=== PATIENT | female | born 1960 | race Caucasian/White ===

== ENCOUNTER → 2016-05-25 | Outpatient (CLI) | payer MEDICARE ==
[~2016-05-25] MED LIST: ACET500C4 PO; ALBU2.5V4 IH; ALBU8.5H2 IH; ALEN70TA47 PO; ALPR0.5T7 PO; ALPR0.5T72 PO; AML5T PO; AMLO5TAB2 PO; ARFO15VI3 NEB; ASP81TEC PO; BUDE10.2 IH; BUDE6HFA IH; CHOL100061 PO; CYCL10TA9 PO; ENOX40DI8 SC; FLUO20CA25 PO; FLUO40CA PO; FLUT1DIS26 IH; FLUT1DIS27 IH; FOLI0.4T2 PO; FOLI0.8T PO; GABA-486 PO; HCTZ PO; HYDR-3714 PO; HYDR-3816 PO; HYDR1TAB66 PO; HYDR25TA4 PO; IBUP-30 PO; INSU100V3 SC; IPRA3AMP INH; L.AC1CAP6 PO; LACT1TAB12 PO; LEVO100T7 PO; LEVO112T55 PO; LEVO750T39 PO; LEVO750T9 IV; LVT.1T PO; MAGN250T7 PO; MAGN400T6 PO; METH125V2 IV; METH125V2 IVP; MNTL10T PO; MONT10TA24 PO; MORP4CAR IVP; NEBU1KIT3 MC; OMEG-12 PO; OMEP20CA6 PO; PANT40TA3 PO; PNT40TEC PO; POTA10TA10 PO; PRD10T PO; PRD20T PO; PRED10TA PO; RT-ALBUINH INH; RT-ALBUTEROL SULF 2.5 MG/3 ML PRE-MIX VIAL ONE; TIMOLOL PO; TIOT18CA IH; TIOT18CA2 INH; TRAZ100T92 PO; VITAMIN B12; VITAMIN D3; ZLP10T PO
== END ==
LOC: RT 13:39
PROVIDERS: ATTEND Internal Medicine Critical Care Medicine
DX: J44.1 Chronic obstructive pulmonary disease with (acute) exacerbation (principal); J96.20 Acute and chronic respiratory failure, unspecified whether with hypoxia or hypercapnia
CPT/HCPCS: 94060; 94640; 94726; 94729

== ENCOUNTER → 2016-05-28 | Outpatient (CLI) | payer MEDICARE ==
[~2016-05-28] MED LIST changes: +RT-ALBUTEROL SULF 2.5 MG/3 ML PRE-MIX VIAL INH ONE; -RT-ALBUTEROL SULF 2.5 MG/3 ML PRE-MIX VIAL ONE
--- OUTSIDE RECORDS SUMMARY | 2016-05-28 12:46 | XMS REPORT | Continuity of Care Document ---
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 04/27/2014 RAYMUNDO CRAMER MD Ot 276.8 04/27/2014 RAYMUNDO CRAMER MD Ot 300.00 04/27/2014 RAYMUNDO CRAMER MD Ot 305.1 04/27/2014 RAYMUNDO CRAMER MD Ot 311 04/27/2014 RAYMUNDO CRAMER MD Ot 401.9 04/27/2014 RAYMUNDO CRAMER MD Ot 486 04/27/2014 RAYMUNDO CRAMER MD Ot 491.0 04/27/2014 RAYMUNDO CRAMER MD Ot 493.91 04/27/2014 RAYMUNDO CRAMER MD Ot 496 04/27/2014 RAYMUNDO CRAMER MD Ot 518.0 04/27/2014 RAYMUNDO CRAMER MD Ot 518.84 04/27/2014 RAYMUNDO CRAMER MD Ot 530.81 04/27/2014 RAYMUNDO CRAMER MD Ot 716.90 04/27/2014 RAYMUNDO CRAMER MD Ot V45.4 04/27/2014 RAYMUNDO CRAMER MD Ot 276.8 04/27/2014 RAYMUNDO CRAMER MD Ot 300.00 04/27/2014 RAYMUNDO CRAMER MD Ot 305.1 04/27/2014 BELA ANDERSON, RAYMUNDO Lopez Ot 311 04/27/2014 BELA ANDERSON, RAYMUNDO Lopez Ot 401.9 04/27/2014 BELA ANDERSON, RAYMUNDO Lopez Ot 486 04/27/2014 BELA ANDERSON, RAYMUNDO Lopez Ot 491.0 04/27/2014 BELA ANDERSON, RAYMUNDO Lopez Ot 493.91 04/27/2014 BELA ANDERSON, RAYMUNDO Lopez Ot 496 04/27/2014 BELA ANDERSON, RAYMUNDO Lopez Ot 518.0 04/27/2014 BELA ANDERSON, RAYMUNDO Lopez Ot 518.84 04/27/2014 BELA ANDERSON, RAYMUNDO Lopez Ot 530.81 04/27/2014 BEAL ANDERSON, RAYMUNDO Lopez Ot 716.90 04/27/2014 RAYMUNDO CRAMER MD Ot V45.4 04/28/2014 RAYMUNDO CRAMER MD Ot 276.8 04/28/2014 RAYMUNDO CRAMER MD Ot 300.00 04/28/2014 BELA ANDERSON, RAYMUNDO Lopez Ot 305.1 04/28/2014 BELA ANDERSON, RAYMUNDO Lopez Ot 311 04/28/2014 BELA ANDERSON, RAYMUNDO Lopez Ot 401.9 04/28/2014 BELA ANDERSON, RAYMUNDO Lopez Ot 486 04/28/2014 BELA ANDERSON, RAYMUNDO Lopez Ot 491.0 04/28/2014 BELA ANDERSON, RAYMUNDO Lopez Ot 493.91 04/28/2014 BELA ANDERSON, RAYMUNDO Lopez Ot 496 04/28/2014 BELA ANDERSON, RAYMUNDO Lopez Ot 518.0 04/28/2014 BELA ANDERSON, RAYMUNDO Lopez Ot 518.84 04/28/2014 BELA ANDERSON, RAYMUNDO Lopez Ot 530.81 04/28/2014 BELA ANDERSON, RAYMUNDO Lopez Ot 716.90 04/28/2014 RAYMUNDO CRAMER MD Ot V45.4 04/28/2014 RAYMUNDO CRAMER MD Ot 276.8 04/28/2014 RAYMUNDO CRAMER MD Ot 300.00 04/28/2014 BELA ANDERSON, RAYMUNDO Lopez Ot 305.1 04/28/2014 RAYMUNDO CRAMER MD Ot 311 04/28/2014 BELA ANDERSON, RAYMUNDO Lopez Ot 401.9 04/28/2014 RAYMUNDO CRAMER MD Ot 486 04/28/2014 BELA ANDERSON, RAYMUNDO Lopez Ot 491.0 04/28/2014 RAYMUNDO CRAMER MD Ot 493.91 04/28/2014 RAYMUNDO CRAMER MD Ot 496 04/28/2014 RAYMUNDO CRAMER MD Ot 518.0 04/28/2014 RAYMUNDO CRAMER MD Ot 518.84 04/28/2014 RAYMUNDO CRAMER MD Ot 530.81 04/28/2014 RAYMUNDO CRAMER MD Ot 716.90 04/28/2014 RAYMUNDO CRAMER MD Ot V45.4 04/28/2014 RAYMUNDO CRAMER MD Ot 276.8 04/28/2014 RAYMUNDO CRAMER MD Ot 300.00 04/28/2014 RAYMUNDO CRAMER MD Ot 305.1 04/28/2014 RAYMUNDO CRAMER MD Ot 311 04/28/2014 RAYMUNDO CRAMER MD Ot 401.9 04/28/2014 RAYMUNDO CRAMER MD Ot 486 04/28/2014 RAYMUNDO CRAMER MD Ot 491.0 04/28/2014 RAYMUNDO CRAMER MD Ot 493.91 04/28/2014 RAYMUNDO CRAMER MD Ot 496 04/28/2014 RAYMUNDO CRAMER MD Ot 518.0 04/28/2014 RAYMUNDO CRAMER MD Ot 518.84 04/28/2014 RAYMUNDO CRAMER MD Ot 530.81 04/28/2014 RAYMUNDO CRAMER MD Ot 716.90 04/28/2014 RAYMUNDO CRAMER MD Ot V45.4 04/28/2014 RAYMUNDO CRAMER MD Ot 276.8 HYPOPOTASSEMIA 04/28/2014 RAYMUNDO CRAMER MD Ot 300.00 ANXIETY STATE NOS 04/28/2014 RAYMUNDO CRAMER MD Ot 305.1 TOBACCO USE DISORDER 04/28/2014 RAYMUNDO CRAMER MD Ot 311 DEPRESSIVE DISORDER NEC 04/28/2014 ARYMUNDO CRAMER MD Ot 401.9 HYPERTENSION NOS 04/28/2014 BELA ANDERSON, RAYMUNDO Lopez Ot 486 PNEUMONIA, ORGANISM NOS 04/28/2014 RAYMUNDO CRAMER MD Ot 491.0 04/28/2014 RAYMUNDO CRAMER MD Ot 491.21 OBSTR CHRONIC BRONCHITIS, W (ACUTE) EXAC 04/28/2014 RAYMUNDO CRAMER MD Ot 493.91 ASTHMA W STATUS ASTHMAT 04/28/2014 RAYMUNDO CRAMER MD Ot 496 04/28/2014 RAYMUNDO CRAMER MD Ot 518.0 PULMONARY COLLAPSE 04/28/2014 RAYMUNDO CRAMER MD Ot 518.84 ACUTE AND CHRONIC RESPIRATORY FAILURE 04/28/2014 RAYMUNDO CRAMER MD Ot 530.81 ESOPHAGEAL REFLUX 04/28/2014 RAYMUNDO CRAMER MD Ot 716.90 ARTHROPATHY NOS-UNSPEC 04/28/2014 RAYMUNDO CRAMER MD Ot V45.4 ARTHRODESIS STATUS 05/27/2014 Ot V72.84 05/28/2014 Ot V72.84 05/31/2014 KELY HARRIS DO Ot 305.1 05/31/2014 KELY HARRIS DO Ot 492.8 07/27/2014 Ot V72.84 07/27/2014 KELY HARRIS DO Ot 305.1 07/27/2014 KELY HARRIS DO Ot 492.8 07/27/2014 KELY HARRIS DO Ot 305.1 07/27/2014 KELY HARRIS DO Ot 492.8 08/02/2014 Ot V72.84 08/02/2014 KELY HARRIS DO Ot 305.1 08/02/2014 KELY HARRIS DO Ot 492.8 09/19/2014 ANURADHA PARRA MD Ot 592.9 10/01/2014 KELY HARRIS DO Ot 305.1 10/01/2014 KELY HARRIS DO Ot 496 10/01/2014 KELY HARRIS DO Ot 786.09 10/04/2014 KELY HARRIS DO Ot 305.1 10/04/2014 KELY HARRIS DO Ot 496 10/04/2014 KELY HARRIS DO Ot 786.09 10/06/2014 Ot V72.84 10/06/2014 KELY HARRIS DO Ot 305.1 10/06/2014 KELY HARRIS DO Ot 492.8 10/06/2014 KELY HARRIS DO Ot 305.1 10/06/2014 KELY HARRIS DO Ot 496 10/06/2014 KELY HARRIS DO Ot 786.09 10/06/2014 AIDA ANDERSON, ANURADHA Mccloud Ot 592.9 10/06/2014 KELY HARRIS DO Ot 305.1 10/06/2014 KELY HARRIS DO Ot 496 10/06/2014 KELY HARRIS DO Ot 786.09 10/06/2014 AIDA ANDERSON, ANURADHA Mccloud Ot 592.9 10/06/2014 KELY HARRIS DO Ot 305.1 10/06/2014 KELY HARRIS DO Ot 492.8 10/14/2014 KELY HARRIS DO Ot 305.1 10/14/2014 KELY HARRIS DO Ot 492.8 10/14/2014 AIDA ANDERSON, ANURADHA Mccloud Ot 592.9 10/14/2014 KELY HARRIS DO Ot 305.1 10/14/2014 KELY HARRIS DO Ot 496 10/14/2014 KELY HARRIS DO Ot 786.09 05/20/2015 KELY HARRIS DO Ot F17.210 NICOTINE DEPENDENCE, CIGARETTES, UNCOMPL 05/20/2015 KELY HARRIS DO Ot F32.9 MAJOR DEPRESSIVE DISORDER, SINGLE EPISOD 05/20/2015 KELY HARRIS DO Ot F41.9 ANXIETY DISORDER, UNSPECIFIED 05/20/2015 KELY HARRIS DO Ot G56.82 OTHER SPECIFIED MONONEUROPATHIES OF LEFT 05/20/2015 KELY HARRIS DO Ot I10 ESSENTIAL (PRIMARY) HYPERTENSION 05/20/2015 KELY HARRIS DO Ot J44.1 CHRONIC OBSTRUCTIVE PULMONARY DISEASE W 05/20/2015 KELY HARRIS DO Ot K21.9 GASTRO-ESOPHAGEAL REFLUX DISEASE WITHOUT 05/20/2015 KELY HARRIS DO Ot S44.92XS INJURY OF UNSP NERVE AT SHLDR/UP ARM, LE 05/20/2015 KELY HARRIS DO Ot Z99.81 DEPENDENCE ON SUPPLEMENTAL OXYGEN 07/27/2015 PHILLIPS DO, SHERRY Ot E03.9 HYPOTHYROIDISM, UNSPECIFIED 07/27/2015 PHILLIPS DO, SHERRY Ot E78.5 HYPERLIPIDEMIA, UNSPECIFIED 07/27/2015 PHILLIPS DO, SHERRY Ot F17.200 NICOTINE DEPENDENCE, UNSPECIFIED, UNCOMP 07/27/2015 PHILLIPS DO, SHERRY Ot F32.9 MAJOR DEPRESSIVE DISORDER, SINGLE EPISOD 07/27/2015 PHILLIPS DO, SHERRY Ot F41.9 ANXIETY DISORDER, UNSPECIFIED 07/27/2015 PHILLIPS DO, SHERRY Ot G62.9 POLYNEUROPATHY, UNSPECIFIED 07/27/2015 PHILLIPS DO, SHERRY Ot I10 ESSENTIAL (PRIMARY) HYPERTENSION 07/27/2015 PHILLIPS DO, SHERRY Ot J44.1 CHRONIC OBSTRUCTIVE PULMONARY DISEASE W 07/27/2015 PHILLIPS DO SHERRY Ot J96.21 ACUTE AND CHRONIC RESPIRATORY FAILURE WI 07/27/2015 JACQUELINE TRINIDAD SHERRY Ot K21.9 GASTRO-ESOPHAGEAL REFLUX DISEASE WITHOUT 07/27/2015 PHILLIPS DO, SHERRY Ot M81.0 AGE-RELATED OSTEOPOROSIS W/O CURRENT PAT 07/27/2015 PHILLIPS DO, SHERRY Ot Z99.81 DEPENDENCE ON SUPPLEMENTAL OXYGEN 04/02/2016 Ot V72.84 EXAM PRE-OPERATIVE NOS 04/02/2016 KELY HARRIS DO Ot 305.1 TOBACCO USE DISORDER 04/02/2016 KELY HARRIS DO Ot 492.8 EMPHYSEMA NEC 04/02/2016 KELY HARRIS DO Ot 305.1 TOBACCO USE DISORDER 04/02/2016 KELY HARRIS DO Ot 496 CHR AIRWAY OBSTRUCT NEC 04/02/2016 KELY HARRIS DO Ot 786.09 RESPIRATORY ABNORM NEC 04/02/2016 AIDA ANDERSON, ANURADHA Mccloud Ot 592.9 URINARY CALCULUS NOS 04/02/2016 KELY HARRIS DO Ot 305.1 TOBACCO USE DISORDER 04/02/2016 KELY HARRIS DO Ot 496 CHR AIRWAY OBSTRUCT NEC 04/02/2016 KELY HARRIS DO Ot 786.09 RESPIRATORY ABNORM NEC 04/04/2016 Ot V72.84 EXAM PRE-OPERATIVE NOS 04/04/2016 KELY HARRIS DO Ot 305.1 TOBACCO USE DISORDER 04/04/2016 KELY HARRIS DO Ot 492.8 EMPHYSEMA NEC 04/04/2016 KELY HARRIS DO Ot 305.1 TOBACCO USE DISORDER 04/04/2016 KELY HARRIS DO Ot 496 CHR AIRWAY OBSTRUCT NEC 04/04/2016 KELY HARRIS DO Ot 786.09 RESPIRATORY ABNORM NEC 04/04/2016 AIDA ANDERSON, ANURADHA Mccloud Ot 592.9 URINARY CALCULUS NOS 04/04/2016 KELY HARRIS DO Ot 305.1 TOBACCO USE DISORDER 04/04/2016 KELY HARRIS DO Ot 496 CHR AIRWAY OBSTRUCT NEC 04/04/2016 KELY HARRIS DO Ot 786.09 RESPIRATORY ABNORM NEC 04/05/2016 CECY CHANG MD Ot E03.9 HYPOTHYROIDISM, UNSPECIFIED 04/05/2016 CECY CHANG MD Ot E78.5 HYPERLIPIDEMIA, UNSPECIFIED 04/05/2016 CECY CHANG MD Ot E87.6 HYPOKALEMIA 04/05/2016 CECY CHANG MD Ot F17.210 NICOTINE DEPENDENCE, CIGARETTES, UNCOMPL 04/05/2016 CECY CHANG MD Ot F32.9 MAJOR DEPRESSIVE DISORDER, SINGLE EPISOD 04/05/2016 CECY CHANG MD Ot F41.9 ANXIETY DISORDER, UNSPECIFIED 04/05/2016 CECY CHANG MD Ot G62.9 POLYNEUROPATHY, UNSPECIFIED 04/05/2016 CECY CHANG MD Ot I10 ESSENTIAL (PRIMARY) HYPERTENSION 04/05/2016 CECY CHANG MD Ot J13 PNEUMONIA DUE TO STREPTOCOCCUS PNEUMONIA 04/05/2016 CECY CHANG MD Ot J44.1 CHRONIC OBSTRUCTIVE PULMONARY DISEASE W 04/05/2016 CECY CHANG MD Ot J96.20 ACUTE AND CHR RESP FAILURE, UNSP W HYPOX 04/05/2016 CECY CHANG MD Ot K21.9 GASTRO-ESOPHAGEAL REFLUX DISEASE WITHOUT 04/05/2016 CECY CHANG MD Ot M19.90 UNSPECIFIED OSTEOARTHRITIS, UNSPECIFIED 04/05/2016 CECY CHANG MD Ot M54.9 DORSALGIA, UNSPECIFIED 04/05/2016 CECY CHANG MD Ot M81.0 AGE-RELATED OSTEOPOROSIS W/O CURRENT PAT 04/05/2016 CECY CHANG MD Ot Z99.81 DEPENDENCE ON SUPPLEMENTAL OXYGEN 05/25/2016 Ot V72.84 EXAM PRE-OPERATIVE NOS 05/25/2016 KELY HARRIS DO Ot 305.1 TOBACCO USE DISORDER 05/25/2016 KELY HARRIS DO Ot 492.8 EMPHYSEMA NEC 05/25/2016 KELY HARRIS DO Ot 305.1 TOBACCO USE DISORDER 05/25/2016 KELY HARRIS DO Ot 496 CHR AIRWAY OBSTRUCT NEC 05/25/2016 KELY HARRIS DO Ot 786.09 RESPIRATORY ABNORM NEC 05/25/2016 AIDA ANDERSON, ANURADHA Mccloud Ot 592.9 URINARY CALCULUS NOS 05/25/2016 KELY HARRIS DO Ot 305.1 TOBACCO USE DISORDER 05/25/2016 KELY HARRIS DO Ot 496 CHR AIRWAY OBSTRUCT NEC 05/25/2016 KELY HARRIS DO Ot 786.09 RESPIRATORY ABNORM NEC 05/25/2016 KELY HARRIS DO Ot J44.9 CHRONIC OBSTRUCTIVE PULMONARY DISEASE, U Procedures Code Description Performed By Performed On 96.71 CONTINUOUS INVASIVE MECHANICAL VENTILATI 04/22/2014 33.24 ENDOSCOPIC BRONCHIAL BX 04/28/2014 [id number] RESPIRATORY VENTILATION, 24-96 CONSECUTI 07/22/2015 [id number] RESPIRATORY VENTILATION, LESS THAN 24 CO 04/02/2016 Results Test Result Range Sputum Gram stain - 04/02/16 15:40 GRAM STAIN SPUTUM AND GRAM POSITIVE COCCI NRG Bacterial sputum culture - 04/02/16 15:40 FREE TEXT EXTERNAL SEE COMMENT NRG QUANTITY OF GROWTH Abundant Growth NRG Bacterial sputum culture [id number] NR Complete blood count (CBC) with automated white blood cell (WBC) differential - 04/02/16 16:05 Blood leukocytes automated count (number/volume) 8.4 10*3/ uL 4.3-11.0 Blood erythrocytes automated count (number/volume) 3.66 10*6 /uL 4.35-5.85 Venous blood hemoglobin measurement (mass/volume) 11.9 g/dL 11.5-16.0 Blood hematocrit (volume fraction) 36 % 35-52 Automated erythrocyte mean corpuscular volume 98 [foz_us] 80-99 Automated erythrocyte mean corpuscular hemoglobin (mass per erythrocyte) 33 pg 25-34 Automated erythrocyte mean corpuscular hemoglobin concentration measurement ( mass/volume) 33 g/dL 32-36 Automated erythrocyte distribution width ratio 13.8 % 10.0-14.5 Automated blood platelet count (count/volume) 203 10*3/uL 130-400 Automated blood platelet mean volume measurement 8.7 [foz_us ] 7.4-10.4 Automated blood neutrophils/100 leukocytes 97 % 42-75 Automated blood lymphocytes/100 leukocytes 2 % 12-44 Blood monocytes/100 leukocytes 1 % 0-12 Automated blood eosinophils/100 leukocytes 0 % 0-10 Automated blood basophils/100 leukocytes 0 % 0-10 Blood neutrophils automated count (number/volume) 8.1 10*3 1.8-7.8 Blood lymphocytes automated count (number/volume) 0.1 10*3 1.0-4.0 Blood monocytes automated count (number/volume) 0.1 10*3 0.0-1.0 Automated eosinophil count 0.0 10*3/uL 0.0-0.3 Automated blood basophil count (count/volume) 0.0 10*3/uL 0.0-0.1 Comprehensive metabolic panel - 04/02/16 16:05 Serum or plasma sodium measurement (moles/volume) 131 mmol/ L 135-145 Serum or plasma potassium measurement (moles/volume) 3.2 mmol/L 3.6-5.0 Serum or plasma chloride measurement (moles/volume) 98 mmol/ L 98-107 Carbon dioxide 23 mmol/L 21-32 Serum or plasma anion gap determination (moles/volume) 10 mmol/L 5-14 Serum or plasma urea nitrogen measurement (mass/volume) 11 mg/dL 7-18 Serum or plasma creatinine measurement (mass/volume) 0.83 mg /dL 0.60-1.30 Serum or plasma urea nitrogen/creatinine mass ratio 13 NRG Serum or plasma creatinine measurement with calculation of estimated glomerular filtration rate > NRG Serum or plasma glucose measurement (mass/volume) 217 mg/dL 70-105 Serum or plasma calcium measurement (mass/volume) 8.1 mg/dL 8.5-10.1 Serum or plasma total bilirubin measurement (mass/volume) 0.7 mg/dL 0.1-1.0 Serum or plasma alkaline phosphatase measurement (enzymatic activity/volume) 39 U/L 40-136 Serum or plasma aspartate aminotransferase measurement (enzymatic activity/ volume) 22 U/L 5-34 Serum or plasma alanine aminotransferase measurement (enzymatic activity/volume ) 16 U/L 0-55 Serum or plasma protein measurement (mass/volume) 5.5 g/dL 6.4-8.2 Serum or plasma albumin measurement (mass/volume) 3.6 g/dL 3.2-4.5 Blood manual differential performed detection - 04/02/16 16:05 Blood monocytes/100 leukocytes 1 % NRG Manual blood segmented neutrophils/100 leukocytes 95 % NRG Blood band neutrophils/100 leukocytes 1 % NRG Manual blood lymphocytes/100 leukocytes 3 % NRG Manual eosinophils/100 leukocytes in nose 0 % NRG Manual blood basophils/100 leukocytes 0 % NRG Blood erythrocyte morphology finding identification NORMAL NRG Serum or plasma glucose measurement (mass/volume) - 04/02/16 16:05 Serum or plasma glucose measurement (mass/volume) 215 mg/dL 70-105 Methicillin resistant Staphylococcus aureus (MRSA) screening culture - 17:00 Methicillin resistant Staphylococcus aureus (MRSA) screening culture NEG NRG Arterial blood gas measurement - 04/02/16 18:23 Blood pCO2 44 mm[Hg] 35-45 Blood pO2 94 mm[Hg] 79-93 Arterial blood bicarbonate measurement (moles/volume) 26 mmol/L 23-27 Arterial blood base excess by calculation 0.3 mmol/L -2.5-2.5 Arterial blood oxygen saturation measurement 97 % 94-100 * Inhaled oxygen flow rate 35 NRG Arterial blood pH measurement with patient temperature correction 7.38 7.37-7.43 Arterial blood carbon dioxide, total measurement (moles/volume) 27.1 mmol/L 21.0-31.0 Body site R RAD NRG Assessment of wrist artery patency prior to arterial puncture YES-POS NRG Setting of ventilation mode YES NRG Measurement of body temperature 98.4 NRG Arterial blood gas measurement - 04/03/16 05:40 Blood pCO2 48 mm[Hg] 35-45 Blood pO2 85 mm[Hg] 79-93 Arterial blood bicarbonate measurement (moles/volume) 26 mmol/L 23-27 Arterial blood base excess by calculation 0.5 mmol/L -2.5-2.5 Arterial blood oxygen saturation measurement 97 % 94-100 * Inhaled oxygen flow rate 35% NRG Arterial blood pH measurement with patient temperature correction 7.36 7.37-7.43 Arterial blood carbon dioxide, total measurement (moles/volume) 27.7 mmol/L 21.0-31.0 Body site ARTLINE NRG Assessment of wrist artery patency prior to arterial puncture ART LINE NRG Setting of ventilation mode YES NRG Measurement of body temperature 98.6 NRG Complete blood count (CBC) with automated white blood cell (WBC) differential - 04/03/16 05:40 Blood leukocytes automated count (number/volume) 10.8 10*3/ uL 4.3-11.0 Blood erythrocytes automated count (number/volume) 3.24 10*6 /uL 4.35-5.85 Venous blood hemoglobin measurement (mass/volume) 10.5 g/dL 11.5-16.0 Blood hematocrit (volume fraction) 32 % 35-52 Automated erythrocyte mean corpuscular volume 98 [foz_us] 80-99 Automated erythrocyte mean corpuscular hemoglobin (mass per erythrocyte) 32 pg 25-34 Automated erythrocyte mean corpuscular hemoglobin concentration measurement ( mass/volume) 33 g/dL 32-36 Automated erythrocyte distribution width ratio 13.7 % 10.0-14.5 Automated blood platelet count (count/volume) 195 10*3/uL 130-400 Automated blood platelet mean volume measurement 8.1 [foz_us ] 7.4-10.4 Automated blood neutrophils/100 leukocytes 94 % 42-75 Automated blood lymphocytes/100 leukocytes 3 % 12-44 Blood monocytes/100 leukocytes 3 % 0-12 Automated blood eosinophils/100 leukocytes 0 % 0-10 Automated blood basophils/100 leukocytes 0 % 0-10 Blood neutrophils automated count (number/volume) 10.2 10*3 1.8-7.8 Blood lymphocytes automated count (number/volume) 0.3 10*3 1.0-4.0 Blood monocytes automated count (number/volume) 0.3 10*3 0.0-1.0 Automated eosinophil count 0.0 10*3/uL 0.0-0.3 Automated blood basophil count (count/volume) 0.0 10*3/uL 0.0-0.1 Whole blood basic metabolic panel - 04/03/16 05:40 Serum or plasma sodium measurement (moles/volume) 134 mmol/ L 135-145 Serum or plasma potassium measurement (moles/volume) 3.9 mmol/L 3.6-5.0 Serum or plasma chloride measurement (moles/volume) 103 mmol /L 98-107 Carbon dioxide 23 mmol/L 21-32 Serum or plasma anion gap determination (moles/volume) 8 mmol/L 5-14 Serum or plasma urea nitrogen measurement (mass/volume) 12 mg/dL 7-18 Serum or plasma creatinine measurement (mass/volume) 0.72 mg /dL 0.60-1.30 Serum or plasma urea nitrogen/creatinine mass ratio 17 NRG Serum or plasma creatinine measurement with calculation of estimated glomerular filtration rate > NRG Serum or plasma glucose measurement (mass/volume) 127 mg/dL 70-105 Serum or plasma calcium measurement (mass/volume) 7.9 mg/dL 8.5-10.1 Serum or plasma phosphate measurement (mass/volume) - 04/03/16 05:40 Serum or plasma phosphate measurement (mass/volume) 3.2 mg/ dL 2.3-4.7 Magnesium - 04/03/16 05:40 Magnesium 2.0 mg/dL 1.8-2.4 Arterial blood gas measurement - 04/03/16 07:30 Blood pCO2 49 mm[Hg] 35-45 Blood pO2 72 mm[Hg] 79-93 Arterial blood bicarbonate measurement (moles/volume) 27 mmol/L 23-27 Arterial blood base excess by calculation 0.5 mmol/L -2.5-2.5 Arterial blood oxygen saturation measurement 95 % 94-100 * Inhaled oxygen flow rate 35% NRG Arterial blood pH measurement with patient temperature correction 7.35 7.37-7.43 Arterial blood carbon dioxide, total measurement (moles/volume) 28.4 mmol/L 21.0-31.0 Body site RR ART NRG Assessment of wrist artery patency prior to arterial puncture ART LINE NRG Setting of ventilation mode YES NRG Measurement of body temperature 97.3 NRG Arterial blood gas measurement - 04/03/16 10:54 Blood pCO2 57 mm[Hg] 35-45 Blood pO2 96 mm[Hg] 79-93 Arterial blood bicarbonate measurement (moles/volume) 27 mmol/L 23-27 Arterial blood base excess by calculation 0.2 mmol/L -2.5-2.5 Arterial blood oxygen saturation measurement 97 % 94-100 * Inhaled oxygen flow rate 6 NRG Arterial blood pH measurement with patient temperature correction 7.30 7.37-7.43 Arterial blood carbon dioxide, total measurement (moles/volume) 29.2 mmol/L 21.0-31.0 Body site ARTLINE NRG Assessment of wrist artery patency prior to arterial puncture ART LINE NRG Setting of ventilation mode NO NRG Measurement of body temperature 98.0 NRG Capillary blood glucose measurement by glucometer (mass/volume) - 04/03/16 12: 14 Capillary blood glucose measurement by glucometer (mass/volume) 142 mg/dL 70-110 Capillary blood glucose measurement by glucometer (mass/volume) - 04/03/16 17: 24 Capillary blood glucose measurement by glucometer (mass/volume) 124 mg/dL 70-110 Complete blood count (CBC) with automated white blood cell (WBC) differential - 04/04/16 04:10 Blood leukocytes automated count (number/volume) 17.7 10*3/ uL 4.3-11.0 Blood erythrocytes automated count (number/volume) 3.49 10*6 /uL 4.35-5.85 Venous blood hemoglobin measurement (mass/volume) 11.3 g/dL 11.5-16.0 Blood hematocrit (volume fraction) 35 % 35-52 Automated erythrocyte mean corpuscular volume 100 [foz_us] 80-99 Automated erythrocyte mean corpuscular hemoglobin (mass per erythrocyte) 32 pg 25-34 Automated erythrocyte mean corpuscular hemoglobin concentration measurement ( mass/volume) 32 g/dL 32-36 Automated erythrocyte distribution width ratio 14.1 % 10.0-14.5 Automated blood platelet count (count/volume) 178 10*3/uL 130-400 Automated blood platelet mean volume measurement 8.5 [foz_us ] 7.4-10.4 Automated blood neutrophils/100 leukocytes 95 % 42-75 Automated blood lymphocytes/100 leukocytes 2 % 12-44 Blood monocytes/100 leukocytes 3 % 0-12 Automated blood eosinophils/100 leukocytes 0 % 0-10 Automated blood basophils/100 leukocytes 0 % 0-10 Blood neutrophils automated count (number/volume) 16.9 10*3 1.8-7.8 Blood lymphocytes automated count (number/volume) 0.3 10*3 1.0-4.0 Blood monocytes automated count (number/volume) 0.6 10*3 0.0-1.0 Automated eosinophil count 0.0 10*3/uL 0.0-0.3 Automated blood basophil count (count/volume) 0.0 10*3/uL 0.0-0.1 Whole blood basic metabolic panel - 04/04/16 04:10 Serum or plasma sodium measurement (moles/volume) 137 mmol/ L 135-145 Serum or plasma potassium measurement (moles/volume) 3.7 mmol/L 3.6-5.0 Serum or plasma chloride measurement (moles/volume) 104 mmol /L 98-107 Carbon dioxide 22 mmol/L 21-32 Serum or plasma anion gap determination (moles/volume) 11 mmol/L 5-14 Serum or plasma urea nitrogen measurement (mass/volume) 17 mg/dL 7-18 Serum or plasma creatinine measurement (mass/volume) 0.70 mg /dL 0.60-1.30 Serum or plasma urea nitrogen/creatinine mass ratio 24 NRG Serum or plasma creatinine measurement with calculation of estimated glomerular filtration rate > NRG Serum or plasma glucose measurement (mass/volume) 126 mg/dL 70-105 Serum or plasma calcium measurement (mass/volume) 8.2 mg/dL 8.5-10.1 Serum or plasma phosphate measurement (mass/volume) - 04/04/16 04:10 Serum or plasma phosphate measurement (mass/volume) 2.3 mg/ dL 2.3-4.7 Magnesium - 04/04/16 04:10 Magnesium 2.2 mg/dL 1.8-2.4 Blood manual differential performed detection - 04/04/16 04:10 Blood monocytes/100 leukocytes 3 % NRG Manual blood segmented neutrophils/100 leukocytes 92 % NRG Blood band neutrophils/100 leukocytes 2 % NRG Manual blood lymphocytes/100 leukocytes 1 % NRG Manual eosinophils/100 leukocytes in nose 0 % NRG Manual blood basophils/100 leukocytes 0 % NRG Blood lymphocytes variant/100 leukocytes 1 % NRG Blood anisocytosis detection by light microscopy SLIGHT NRG Blood toxic granules detection by light microscopy 1+ NRG Manual blood metamyelocytes/100 leukocytes 1 % NRG Serum or plasma lithium measurement (moles/volume) - 04/04/16 04:10 BNP level 119.9 pg/mL <100.0 Arterial blood gas measurement - 04/04/16 04:15 Blood pCO2 50 mm[Hg] 35-45 Blood pO2 81 mm[Hg] 79-93 Arterial blood bicarbonate measurement (moles/volume) 27 mmol/L 23-27 Arterial blood base excess by calculation 1.2 mmol/L -2.5-2.5 Arterial blood oxygen saturation measurement 96 % 94-100 * Inhaled oxygen flow rate 30% BIPAP NRG Arterial blood pH measurement with patient temperature correction 7.35 7.37-7.43 Arterial blood carbon dioxide, total measurement (moles/volume) 28.8 mmol/L 21.0-31.0 Body site L RAD NRG Assessment of wrist artery patency prior to arterial puncture YES-POS NRG Setting of ventilation mode NO NRG Measurement of body temperature 98.9 NRG Capillary blood glucose measurement by glucometer (mass/volume) - 04/04/16 18: 45 Capillary blood glucose measurement by glucometer (mass/volume) 140 mg/dL 70-110 Capillary blood glucose measurement by glucometer (mass/volume) - 04/05/16 00: 15 Capillary blood glucose measurement by glucometer (mass/volume) 178 mg/dL 70-110 Complete blood count (CBC) with automated white blood cell (WBC) differential - 04/05/16 04:08 Blood leukocytes automated count (number/volume) 13.6 10*3/ uL 4.3-11.0 Blood erythrocytes automated count (number/volume) 4.01 10*6 /uL 4.35-5.85 Venous blood hemoglobin measurement (mass/volume) 12.7 g/dL 11.5-16.0 Blood hematocrit (volume fraction) 39 % 35-52 Automated erythrocyte mean corpuscular volume 98 [foz_us] 80-99 Automated erythrocyte mean corpuscular hemoglobin (mass per erythrocyte) 32 pg 25-34 Automated erythrocyte mean corpuscular hemoglobin concentration measurement ( mass/volume) 32 g/dL 32-36 Automated erythrocyte distribution width ratio 13.6 % 10.0-14.5 Automated blood platelet count (count/volume) 208 10*3/uL 130-400 Automated blood platelet mean volume measurement 8.3 [foz_us ] 7.4-10.4 Automated blood neutrophils/100 leukocytes 93 % 42-75 Automated blood lymphocytes/100 leukocytes 2 % 12-44 Blood monocytes/100 leukocytes 4 % 0-12 Automated blood eosinophils/100 leukocytes 0 % 0-10 Automated blood basophils/100 leukocytes 0 % 0-10 Blood neutrophils automated count (number/volume) 12.7 10*3 1.8-7.8 Blood lymphocytes automated count (number/volume) 0.3 10*3 1.0-4.0 Blood monocytes automated count (number/volume) 0.6 10*3 0.0-1.0 Automated eosinophil count 0.0 10*3/uL 0.0-0.3 Automated blood basophil count (count/volume) 0.0 10*3/uL 0.0-0.1 Whole blood basic metabolic panel - 04/05/16 04:08 Serum or plasma sodium measurement (moles/volume) 137 mmol/ L 135-145 Serum or plasma potassium measurement (moles/volume) 3.4 mmol/L 3.6-5.0 Serum or plasma chloride measurement (moles/volume) 94 mmol/ L 98-107 Carbon dioxide 33 mmol/L 21-32 Serum or plasma anion gap determination (moles/volume) 10 mmol/L 5-14 Serum or plasma urea nitrogen measurement (mass/volume) 22 mg/dL 7-18 Serum or plasma creatinine measurement (mass/volume) 0.80 mg /dL 0.60-1.30 Serum or plasma urea nitrogen/creatinine mass ratio 28 NRG Serum or plasma creatinine measurement with calculation of estimated glomerular filtration rate > NRG Serum or plasma glucose measurement (mass/volume) 126 mg/dL 70-105 Serum or plasma calcium measurement (mass/volume) 8.9 mg/dL 8.5-10.1 Serum or plasma phosphate measurement (mass/volume) - 04/05/16 04:08 Serum or plasma phosphate measurement (mass/volume) 2.2 mg/ dL 2.3-4.7 Magnesium - 04/05/16 04:08 Magnesium 2.2 mg/dL 1.8-2.4 Encounters ACCT No. Visit Date/Time Discharge Status Pt. Type Provider Facility Loc./Unit Complaint [id number] 04/02/2016 15:29:00 2015 11:28:00 DIS Inpatient BERNARDO ANDERSON, CECY Manzano [facility] ICU RESP FAILURE [id number] 07/22/2015 19:56:00 2015 15:35:00 DIS Inpatient SHERRY PHILLIPS DO [facility] ICU COPD, VENT, HIGHER LEVEL OF CARE [id number] 08/27/2014 08:16:00 2014 23:59:59 CLS Outpatient KELY HARRIS DO [facility] RAD COPD DYSPNEA [id number] 08/04/2014 13:46:00 2014 23:59:59 CLS Outpatient KELY HARRIS DO [facility] RT COPD,DYSPNEA,TOBACCO USER [id number] 08/02/2014 11:46:00 2014 23:59:59 CLS Outpatient ANURADHA PARRA MD [facility] RAD STONE [id number] 05/28/2014 09:59:00 2014 23:59:59 CLS Outpatient KELY HARRIS DO [facility] RAD COPD [id number] 05/28/2016 13:45:00 PEN Preadmit KELY HARRIS DO [facility] RAD COPD,DYSPNEA [id number] 05/25/2016 13:39:00 ACT Outpatient KELY HARRIS DO [facility] RT COPD,DYSPNEA [id number] 05/18/2015 13:11:00 ACT Inpatient KELY HARRIS DO [facility] 4TH COPD EXACERBATION [id number] 05/27/2014 10:18:00 Document Registration [id number] 04/22/2014 18:09:00 ACT Inpatient BELA ANDERSON, RAYMUNDO Lopez [facility] 4TH RESP DISTRESS; HEMOPTISIS [id number] 07/24/2012 07:22:00 Document Registration [id number] 07/23/2012 17:21:00 Document Registration [id number] 07/07/2010 07:06:00 Document Registration
--- NOTE | 2016-05-28 15:14 | Diagnostic Imaging Report ---
PROCEDURE: Lung cancer screening CT chest without contrast. TECHNIQUE: Multiple contiguous axial images were obtained through the chest without the use of intravenous contrast. This is performed with a low-dose protocol. INDICATION: Currently asymptomatic patient with 40 year history of two packs per day for a total of 80 pack years history of smoking Comparison: 05/19/2015. Findings: Upper lobe predominant emphysema changes are seen. There is groundglass low density nodule seen in the right minor fissure area likely related to scarring and appears to be present on prior exams including 04/26/2014. This measures 6 mm. There is otherwise no significant nodule, consolidation or mass. The heart size is normal. The thoracic aorta is normal in caliber. No mediastinal mass or significantly enlarged lymph nodes are noted. There are calcified lymph nodes seen in the right hilum and right paratracheal station. There are no enlarged noncalcified lymph nodes seen. No pleural or pericardial effusion. The osseous structures demonstrate mild degenerative changes. IMPRESSION: Upper lobe predominant emphysema. 6 mm nodular density along the minor fissure is most likely a scar and is stable from April 2014 exam. No suspicious nodule. Lung Rads Category 2. Benign findings. Recommendations: Annual screening low-dose CT scan. Dictated by: Dictated on workstation # [id number]
== END ==
LOC: RAD 12:41
PROVIDERS: ATTEND Internal Medicine Critical Care Medicine
DX: J96.20 Acute and chronic respiratory failure, unspecified whether with hypoxia or hypercapnia (principal); J44.1 Chronic obstructive pulmonary disease with (acute) exacerbation; F17.210 Nicotine dependence, cigarettes, uncomplicated

== ENCOUNTER 2016-07-23 19:21 | Emergency (ER) | payer MEDICARE ==
[~2016-07-23] VITALS: Ht 162.6 cm; Wt 63.0 kg
[~2016-07-23 19:21] MED LIST changes: -ALBU2.5V4 IH; -ALEN70TA47 PO; -BUDE10.2 IH; -NEBU1KIT3 MC; -PRD20T PO; -RT-ALBUTEROL SULF 2.5 MG/3 ML PRE-MIX VIAL INH ONE; -VITAMIN B12; -VITAMIN D3
[2016-07-23] MEDS ORDERED: methylPREDNISolone 125 MG (Solu-MEDROL) VIAL IV STA (19:32)
[2016-07-23] MEDS ORDERED: RT-ALBUTEROL/IPRATROPIUM 3 ML (DUONEB) VIAL INH ONE ×2 (19:45→20:00)
[2016-07-23 19:51] LABS: BASOPHILS % (AUTO) 0 % (0-10); EOSINOPHILS % (AUTO) 0 % (0-10); LYMPHOCYTES # (AUTO) 1.9 X 10^3 (1.0-4.0); LYMPHOCYTES % (AUTO) 19 % (12-44); MEAN CORPUSCULAR HEMOGLOBIN 32 PG (25-34); MEAN CORPUSCULAR HGB CONC 34 G/DL (32-36); MEAN CORPUSCULAR VOLUME 94 FL (80-99); MEAN PLATELET VOLUME 7.9 FL (7.4-10.4); MONOCYTES # (AUTO) 0.7 X 10^3 (0.0-1.0); MONOCYTES % (AUTO) 7 % (0-12); NEUTROPHILS # (AUTO) 7.5 X 10^3 (1.8-7.8); NEUTROPHILS % (AUTO) 74 % (42-75); PLATELET COUNT 336 10^3/uL (130-400); RED BLOOD COUNT 4.18 10^6/uL (4.35-5.85); RED CELL DISTRIBUTION WIDTH 12.3 % (10.0-14.5); WHITE BLOOD COUNT 10.1 10^3/uL (4.3-11.0)
[2016-07-23] MEDS ORDERED: BUDE10.2 IH (19:59)
[2016-07-23] MEDS ORDERED: PRD20T PO ×2 (19:59→21:26)
[2016-07-23] MEDS ORDERED: VITAMIN B12 (19:59)
[2016-07-23] MEDS ORDERED: ALEN70TA47 PO (19:59)
[2016-07-23] MEDS ORDERED: VITAMIN D3 (19:59)
--- NOTE | 2016-07-23 19:59 | ED Respiratory ---
General Chief Complaint: Respiratory Problems Stated Complaint: SOB Nursing Triage Note: PT C/O COPD EXAC X 4 WEEKS. SHE IS ON HER 3RD ROUND OF PREDNISONE. SHE WAS SEEN AT ER AT [facility] LAST SATURDAY. NO ABX TREATMENT AT THIS TIME. SHE REPORTS SOA MARKEDLY WORSE TODAY. Source: patient, family Exam Limitations: no limitations History of Present Illness Time seen by provider: 19:50 Initial Comments 56-year-old female patient presents to the emergency department complaints of COPD exacerbation for 4 weeks. Patient states she has been on 3 rounds of prednisone. Was seen at [facility] emergency department last Saturday he was instructed to continue current treatment. Patient states when prednisone is decreased to 20 mg she begins having increasing symptoms. Patient does see Dr. Spear and is scheduled to see him this Saturday. Timing/Duration: other (4 wks, worse over the last 5-7 days.) Prior Episodes/Possible Cause: chronic episodes Modifying Factors: Worse With Coughing Allergies and Home Medications Allergies Coded Allergies: metronidazole (Verified Allergy, Unknown, 04/02/16) Home Medications Albuterol Sulfate 2.5 Mg/3 Ml Vial.neb, 2.5 MG IH Q4H PRN for SHORTNESS OF BREATH, #28 Ref 0 Diagnosi: COPD exacerbation J44.1 Prescribed by: KIM GUTIÉRREZ on 07/24/16 1539 Alendronate Sodium 70 Mg Tablet, 1 TAB PO WEEKLY, #4 (Reported) Alprazolam 0.5 Mg Tablet, 0.5 MG PO TID, (Reported) Budesonide/Formoterol Fumarate 10.2 Gm Hfa.aer.ad, 2 PUFF IH BID, (Reported) Cyclobenzaprine HCl 10 Mg Tablet, 10 MG PO HS, (Reported) Hydrochlorothiazide 25 Mg Tablet, 25 MG PO DAILY, (Reported) Hydrocodone/Acetaminophen 1 Each Tablet, 1 TAB PO TID PRN for PAIN, (Reported) Ipratropium/Albuterol Sulfate 3 Ml Ampul.neb, 3 ML INH RTQ4HR for 30 Days Prescribed by: SHERRY PHILLIPS on 04/05/16 1012 L.acidoph & Paracasei,B.lactis 1 Each Capsule, 1 CAP PO DAILY, (Reported) Levothyroxine Sodium 112 Mcg Tablet, 112 MCG PO DAILY, (Reported) Montelukast Sodium 10 Mg Tablet, 10 MG PO HS, (Reported) Pantoprazole Sodium 40 Mg Tablet.dr, 40 MG PO DAILY, (Reported) Prednisone 20 Mg Tab, 20 MG PO DAILY, #11 (Reported) Take 3 tabs(60mg)daily, decrease by 1/2 tab(10mg)daily. Prednisone 20 Mg Tab, 40 MG PO DAILY for 5 Days, #10 Ref 0 Prescribed by: EVERTON LOPEZ on 07/23/162125 Trazodone HCl 100 Mg Tablet, 100 MG PO HS, (Reported) [Vitamin B12] , (Reported) [Vitamin D3] , (Reported) Constitutional: No chills, No fever, No malaise EENTM: no symptoms reported Respiratory: see HPI, cough, dyspnea on exertion ((chronic)), No hemoptysis, No orthopnea, phlegm (clear.), short of breath, No stridor, wheezing Cardiovascular: No chest pain, No edema, No palpitations, No syncope Gastrointestinal: No abdominal pain, No constipation, No diarrhea, No nausea, No vomiting Genitourinary: no symptoms reported Musculoskeletal: no symptoms reported Skin: no symptoms reported Psychiatric/Neurological: No Symptoms Reported All Other Systems Reviewed Negative Unless Noted: Yes (Negative excepted noted.) Past Gqovpwl-Taknuv-Eqhcri Hx Patient Social History Alcohol Use: Denies Use Recreational Drug Use: No Smoking Status: Former Smoker Type Used: Cigarettes Former Smoker/When Quit: Jun 02, 2012 2nd Hand Smoke Exposure: No Recent Foreign Travel: No Contact w/Someone Who Travel: No Recent Infectious Disease Expo: No Recent Hopitalizations: Yes (COPD EXAC 04/06) Immunizations Up To Date Date of Pneumonia Vaccine: Apr 22, 2009 Date of Influenza Vaccine: Feb 20, 2016 Surgeries HX Surgeries: Yes (C-SPINE, BACK SURGERY x4;LUIS FUNDOPLICATION,EGD/ COLONOSCOPY;BRONCHOSCOPY) Surgeries: Abdominal, Gallbladder, Hysterectomy, Orthopedic Respiratory Hx Respiratory Disorders: Yes (HOME O2 2L) Respiratory Disorders: Chronic Bronchitis, COPD Cardiovascular Hx Cardiac Disorders: Yes Cardiac Disorders: Hypertension Neurological Hx Neurological Disorders: No Neurological Disorders: Headaches /Migraines, Neuropathy Reproductive System Hx Reproductive Disorders: No CARE TAKER History: Hysterectomy, Menopausal Genitourinary Hx Genitourinary Disorders: No Gastrointestinal Hx Gastrointestinal Disorders: Yes (LUIS FUNDOPLICATION) Gastrointestinal Disorders: Gastroesophageal Reflux, Hiatal Hernia Musculoskeletal Hx Musculoskeletal Disorders: Yes Musculoskeletal Disorders: Degenerate Disk Disease, Arthritis, Chronic Back Pain Endocrine Hx Endocrine Disorders: No HEENT HX ENT Disorders: No Cancer Hx Cancer: No Psychosocial Hx Psychiatric Problems: Yes Behavioral Health Disorders: Anxiety, Depression Integumentary HX Skin/Integumentary Disorder: No Blood Transfusions Hx Blood Disorders: No Reviewed Nursing Assessment Reviewed/Agree w Nursing PMH: Yes Family Medical History Significant Family History: No Pertinent Family Hx Family Medial History: Alcoholism Arthritis Asthma Colon cancer Diabetes mellitus Drug abuse Hypertension Kidney disease Parkinson's disease Respiratory disorder Thyroid disease Visual disorder Physical Exam Vital Signs Vital Sign - Last 12Hours 07/23/16 19:48 Temp 97.3 Pulse 92 Resp 42 B/P (MAP) 143/128 Pulse Ox 96 O2 Delivery Nasal Cannula O2 Flow Rate 3.00 Capillary Refill : Less Than 3 Seconds General Appearance: moderate distress, other (chronically ill appearing female. ) HEENT: PERRL/EOMI, pharynx normal Neck: supple, normal inspection Respiratory: decreased breath sounds ((in all lung osman)), rhonchi, wheezing (very mild expiratory wheezing.), expiration Cardiovascular: normal peripheral pulses, no edema, no murmur, tachycardia Gastrointestinal: non tender, soft, No distended Extremities: no pedal edema, normal capillary refill Neurologic/Psychiatric: alert, oriented x 3, other (patient is anxious.) Skin: normal color, warm/dry, No cyanosis, No cool, No diaphoresis, No mottled Progress/Results/Core Measures Results/Orders Lab Results Laboratory Tests Test 07/23/16 19:40 07/23/16 19:50 Range/Units White Blood Count 10.1 4.3-11.0 10^3/uL Red Blood Count 4.18 L 4.35-5.85 10^6/uL Hemoglobin 13.3 11.5-16.0 G/DL Hematocrit 39 35-52 % Mean Corpuscular Volume 94 80-99 FL Mean Corpuscular Hemoglobin 32 25-34 PG Mean Corpuscular Hemoglobin Concent 34 32-36 G/DL Red Cell Distribution Width 12.3 10.0-14.5 % Platelet Count 336 130-400 10^3/uL Mean Platelet Volume 7.9 7.4-10.4 FL Neutrophils (%) (Auto) 74 42-75 % Lymphocytes (%) (Auto) 19 12-44 % Monocytes (%) (Auto) 7 0-12 % Eosinophils (%) (Auto) 0 0-10 % Basophils (%) (Auto) 0 0-10 % Neutrophils # (Auto) 7.5 1.8-7.8 X 10^3 Lymphocytes # (Auto) 1.9 1.0-4.0 X 10^3 Monocytes # (Auto) 0.7 0.0-1.0 X 10^3 Eosinophils # (Auto) 0.0 0.0-0.3 10^3/uL Basophils # (Auto) 0.0 0.0-0.1 10^3/uL D-Dimer 1.57 H 0.00-0.49 UG/ML Sodium Level 135 135-145 MMOL/L Potassium Level 3.5 L 3.6-5.0 MMOL/L Chloride Level 98 98-107 MMOL/L Carbon Dioxide Level 27 21-32 MMOL/L Anion Gap 10 5-14 MMOL/L Blood Urea Nitrogen 13 7-18 MG/DL Creatinine 0.88 0.60-1.30 MG/DL Estimat Glomerular Filtration Rate > 60 BUN/Creatinine Ratio 15 Glucose Level 118 H 70-105 MG/DL Calcium Level 9.5 8.5-10.1 MG/DL Total Bilirubin 0.3 0.1-1.0 MG/DL Aspartate Amino Transf (AST/SGOT) 18 5-34 U/L Alanine Aminotransferase (ALT/SGPT) 15 0-55 U/L Alkaline Phosphatase 44 40-136 U/L B-Type Natriuretic Peptide 16.5 <100.0 PG/ML Total Protein 6.4 6.4-8.2 G/DL Albumin 4.1 3.2-4.5 G/DL Blood Gas Puncture Site R RAD Blood Gas Patient Temperature 97.3 Arterial Blood pH 7.52 H 7.37-7.43 Arterial Blood Partial Pressure CO2 32 L 35-45 MMHG Arterial Blood Partial Pressure O2 138 H 79-93 MMHG Arterial Blood HCO3 26 23-27 MMOL/L Arterial Blood Total CO2 27.3 21.0-31.0 MMOL/L Arterial Blood Oxygen Saturation 100 94-100 % Arterial Blood Base Excess 3.3 H -2.5-2.5 MMOL/L Garrison Test YES-POS Blood Gas Ventilator Setting NO Blood Gas Inspired Oxygen 5L My Orders Kecia - EVERTON LOPEZ PA Chest 1 View, Ap/Pa Only (07/23/16 19:32) Albuterol/Ipra Inhalation Soln (Duoneb I (07/23/16 19:45) Methylprednisolone Sod Succ (Solu-Medrol (07/23/16 19:32) BNP (07/23/16 19:32) Cbc With Automated Diff (07/23/16 19:32) Comprehensive Metabolic Panel (07/23/16 19:32) Fibrin Degradation Products (07/23/16 19:32) Saline Lock/Iv-Start (07/23/16 19:32) Svn Sm Volume Nebulizer Rt-Rfs (07/23/16 19:32) Arterial Blood Gas (07/23/16 19:44) Albuterol/Ipra Inhalation Soln (Duoneb I (07/23/16 20:00) Svn Sm Volume Nebulizer Rt-Rfs (07/23/16 19:46) Ct Angio Chest W (07/23/16 20:46) Iv Push Php Programmer Ed (07/23/16 ) Medications Given in ED Vital Signs/I&O Vital Sign - Last 12Hours 07/23/16 07/23/16 07/23/16 07/23/16 19:48 20:13 20:18 22:25 Temp 97.3 97.9 Pulse 92 92 Resp 42 18 B/P (MAP) 143/128 Pulse Ox 96 99 99 97 O2 Delivery Nasal Cannula O2 Flow Rate 3.00 5.00 5.00 3.00 Blood Pressure Mean: 133 Diagnostic Imaging Diagonstic Imaging: Xray Plain Films/CT/US/NM/MRI: chest Comments Heart size and pulmonary vascularity are normal. Lungs are clear. There are no effusions or pneumothoraces. Impression: No acute abnormalities in the chest Dictated by: Dictated on workstation # [id number] Reviewed: Reviewed by Me (radiology report reviewed by me) Diagonstic Imaging: CT Plain Films/CT/US/NM/MRI: chest Comments INDICATION: Difficulty breathing There are emphysematous changes in the lungs. There are no infiltrates, effusions or pneumothoraces. There is no hilar or mediastinal lymphadenopathy. There is minimal calcific atherosclerosis of the aortic arch. There is no aneurysm or dissection. There are no pulmonary emboli seen. IMPRESSION: COPD. No acute abnormality seen. Dictated by: Dictated on workstation # [id number] Reviewed: Reviewed by Me (radiology report reviewed by me) Departure Communication Progress Notes All laboratory and diagnostic findings were discussed with the patient. Patient shows improved breath sounds bilaterally with minimal expiratory wheeze and crackles. Patient states this is normal for her. Patient is in no acute respiratory distress. Proceed with discharge to home. All return precautions were discussed with the patient as described in the discharge instructions of this report. Patient voices understanding and agrees with the treatment plan. Impression Impression: Primary Impression: COPD exacerbation Disposition: HOME, SELF-CARE Condition: Improved Departure-Patient Inst. Decision time for Depature: 21:23 Referrals: KELY SPEAR LISA A MD (PCP/Family) Primary Care Physician Patient Instructions: Exacerbation of COPD (DC) Add. Discharge Instructions: All discharge instructions reviewed with patient and/or family. Voiced understanding. Medications as instructed. Increase prednisone to 40 mg by mouth daily 5 days. Continue usual home medications. Follow-up with Dr. Spear Saturday as previously scheduled. Follow-up with family practitioner for recheck, call for appointment time. Return to the emergency department immediately for worsened shortness of air, chest pain, dizziness, difficulty swallowing, fever, or any other concerns. Scripts Albuterol Sulfate (Albuterol Sulfate) 2.5 Mg/3 Ml Vial.neb 2.5 MG IH Q4H Y for SHORTNESS OF BREATH, #28 EA 0 Refills Diagnosi: COPD exacerbation J44.1 Prov: KIM GUTIÉRREZ APRN 07/24/16 Prednisone (Prednisone) 20 Mg Tab 40 MG PO DAILY for 5 Days, #10 TAB 0 Refills Prov: EVERTON LOPEZ 07/23/16 EVERTON LOPEZ Jul 23, 2016 19:59
[2016-07-23 20:11] LABS: ALANINE AMINOTRANSFERASE 15 U/L (0-55); ALBUMIN 4.1 G/DL (3.2-4.5); ANION GAP 10 MMOL/L (5-14); ASPARTATE AMINO TRANSFERASE 18 U/L (5-34); BILIRUBIN,TOTAL 0.3 MG/DL (0.1-1.0); BLOOD UREA NITROGEN 13 MG/DL (7-18); BUN/CREATININE RATIO 15; CALCIUM 9.5 MG/DL (8.5-10.1); CARBON DIOXIDE 27 MMOL/L (21-32); CHLORIDE 98 MMOL/L (98-107); CREATININE SERUM 0.88 MG/DL (0.60-1.30); GFR ESTIMATED > 60; GLUCOSE 118 MG/DL (70-105); POTASSIUM 3.5 MMOL/L (3.6-5.0); SODIUM 135 MMOL/L (135-145); TOTAL PROTEIN 6.4 G/DL (6.4-8.2)
[2016-07-23 20:21] LABS: ABG BASE EXCESS 3.3 MMOL/L (-2.5-2.5); ABG HCO3 26 MMOL/L (23-27); ABG OXYGEN SATURATION 100 % (94-100); ABG PCO2 32 MMHG (35-45); ABG PH 7.52 (7.37-7.43); ABG PO2 138 MMHG (79-93); ABG TCO2 27.3 MMOL/L (21.0-31.0)
[2016-07-23 20:22] LABS: ALLENS TEST YES-POS; PATIENT TEMP 97.3
--- NOTE | 2016-07-23 20:31 | Diagnostic Imaging Report ---
Indication: Difficulty breathing Portable chest 8:24 PM Heart size and pulmonary vascularity are normal. Lungs are clear. There are no effusions or pneumothoraces. Impression: No acute abnormalities in the chest Dictated by: Dictated on workstation # [id number]
[2016-07-23] MEDS ORDERED: NS 100 ML (IVPB) BAG IV ONE (21:00)
[2016-07-23] MEDS ORDERED: IOHEXOL 350 MG/ML 150 ML (OMNIPAQUE 350) VIAL IV ONE (21:00)
[2016-07-23] MEDS ORDERED: NEBU1KIT3 MC (21:26)
[2016-07-23] MEDS ORDERED: ALBU2.5V4 IH (21:26)
--- NOTE | 2016-07-23 21:39 | Diagnostic Imaging Report ---
PROCEDURE: CT angiography of the chest with contrast. TECHNIQUE: Multiple contiguous axial images were obtained through the chest after uneventful bolus administration of intravenous contrast. Reconstructed CTA MIP acquisitions were also performed. INDICATION: Difficulty breathing There are emphysematous changes in the lungs. There are no infiltrates, effusions or pneumothoraces. There is no hilar or mediastinal lymphadenopathy. There is minimal calcific atherosclerosis of the aortic arch. There is no aneurysm or dissection. There are no pulmonary emboli seen. IMPRESSION: COPD. No acute abnormality seen. Dictated by: Dictated on workstation # [id number]
[2016-07-23 22:25] VITALS: BP 127/103
[2016-07-24] MEDS ORDERED: RT-ALBUINH INH (15:27)
[2016-07-24] MEDS ORDERED: ALBU2.5V4 IH (15:39)
--- OUTSIDE RECORDS SUMMARY | 2016-08-26 06:56 | XMS REPORT | Continuity of Care Document ---
Author Author [facility] Organization [facility] Address Unknown Phone Unavailable Allergies Active Description Code Type Severity Reaction Onset Reported/Identified Relationship to Patient Clinical Status Yes morphine [id number] Drug Allergy Severe NAUSEA/VOMITING 04/23/2014 Yes No Known Drug Allergies [id number] Drug Allergy Unknown N/ A 07/25/2015 Yes metronidazole [id number] Drug Allergy Unknown N/A 04/02/2016 Medications Problems [...] ANDERSON, RAYMUNDO Lopez Ot 486 04/27/2014 BELA ANDESRON, RAYMUNDO Lopez Ot 491.0 04/27/2014 BELA ANDERSON, RAYMUNDO Lopez Ot 493.91 04/27/2014 BELA ANDERSON, RAYMUNDO Lopez Ot 496 04/27/2014 BELA ANDERSON, RAYMUNDO Lopez Ot 518.0 04/27/2014 BELA ANDERSON, RAYMUNDO Lopez Ot 518.84 04/27/2014 BELA ANDERSON, RAYMUNDO Lopez Ot 530.81 04/27/2014 BELA ANDERSON, RAYMUNDO Lopez Ot 716.90 04/27/2014 RAYMUNDO [...] MD Ot 311 DEPRESSIVE DISORDER NEC 04/28/2014 RAYMUNDO CRAMER MD Ot 401.9 HYPERTENSION NOS 04/28/2014 [...] 10/01/2014 KELY HARRIS DO Ot 496 10/01/2014 EKLY HARRIS DO Ot 786.09 10/04/2014 KELY HARRIS DO Ot 305.1 10/04/2014 KELY HARRIS DO Ot 496 10/04/2014 KELY HARRIS DO Ot 786.09 10/06/2014 Ot V72.84 10/06/2014 KELY HARRIS DO Ot 305.1 10/06/2014 KELY HARRIS DO Ot 492.8 10/06/2014 KELY HARRIS DO Ot 305.1 10/06/2014 KELY HARRIS DO Ot 496 10/06/2014 KELY HARRIS DO Ot 786.09 10/06/2014 AIDA ANEDRSON, ANURADHA Mccloud Ot 592.9 10/06/2014 KELY HARRIS [...] Ot J44.9 CHRONIC OBSTRUCTIVE PULMONARY DISEASE, U 05/28/2016 KELY HARRIS DO Ot J44.9 CHRONIC OBSTRUCTIVE PULMONARY DISEASE, U 05/29/2016 KELY HARRIS DO Ot J44.1 CHRONIC OBSTRUCTIVE PULMONARY DISEASE W 05/29/2016 KELY HARRIS DO Ot J96.20 ACUTE AND CHR RESP FAILURE, UNSP W HYPOX 05/29/2016 KELY HARRIS DO Ot J44.1 CHRONIC OBSTRUCTIVE PULMONARY DISEASE W 05/29/2016 KELY HARRIS DO Ot J96.20 ACUTE AND CHR RESP FAILURE, UNSP W HYPOX 06/18/2016 KELY HARRIS DO Ot J44.1 CHRONIC OBSTRUCTIVE PULMONARY DISEASE W 06/18/2016 KELY HARRIS DO Ot J96.20 ACUTE AND CHR RESP FAILURE, UNSP W HYPOX 07/24/2016 EVERTON GORDON Ot I10 ESSENTIAL (PRIMARY) HYPERTENSION 07/24/2016 EVERTON GORDON Ot J44.1 CHRONIC OBSTRUCTIVE PULMONARY DISEASE W 07/24/2016 EVERTON GORDON Ot R06.02 SHORTNESS OF BREATH 07/24/2016 EVERTON GORDON Ot 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 07/24/2016 EVERTON GORDON Ot Z87.891 PERSONAL HISTORY OF NICOTINE DEPENDENCE 07/25/2016 JESSICA HALL EVERTON Stefania Ot I10 ESSENTIAL (PRIMARY) HYPERTENSION 07/25/2016 JESSICA HALL EVERTON L Ot J44.1 CHRONIC OBSTRUCTIVE PULMONARY DISEASE W 07/25/2016 JESSICA HALL EVERT[place] Stefania Ot R06.02 SHORTNESS OF BREATH 07/25/2016 JESSICA HALL EVERTON Stefania Ot 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 07/25/2016 JESSICA HALL EVERTON Stefania Ot Z87.891 PERSONAL HISTORY OF NICOTINE DEPENDENCE 07/29/2016 JESSICA HALL EVERTON Stefania Ot I10 ESSENTIAL (PRIMARY) HYPERTENSION 07/29/2016 JESSICA HALL EVERTON Stefania Ot J44.1 CHRONIC OBSTRUCTIVE PULMONARY DISEASE W 07/29/2016 JESSICA HALL EVERTON Stefania Ot R06.02 SHORTNESS OF BREATH 07/29/2016 JESSICA HALL EVERTON Stefania Ot Z79.899 OTHER [facility] (CURRENT) DRUG THERAPY 07/29/2016 NEGIN GORDONEN Stefania Ot Z87.891 PERSONAL HISTORY OF NICOTINE DEPENDENCE 08/06/2016 KELY HARRIS DO Ot F17.210 NICOTINE DEPENDENCE, CIGARETTES, UNCOMPL 08/06/2016 KELY HARRIS DO Ot J44.1 CHRONIC OBSTRUCTIVE PULMONARY DISEASE W 08/06/2016 KELY HARRIS DO Ot J96.20 ACUTE AND CHR RESP FAILURE, UNSP W HYPOX Procedures Code Description Performed By Performed On 96.71 CONTINUOUS INVASIVE MECHANICAL VENTILATI 04/22/2014 33.24 ENDOSCOPIC BRONCHIAL BX 04/28/2014 [id number] RESPIRATORY VENTILATION, 24-96 CONSECUTI 07/22/2015 [id number] RESPIRATORY VENTILATION, LESS THAN 24 CO 04/02/2016 Results Test Result Range Sputum Gram stain - 04/02/16 15:40 GRAM STAIN SPUTUM AND GRAM POSITIVE COCCI NRG Bacterial sputum culture - 04/02/16 15:40 FREE TEXT EXTERNAL SEE COMMENT NRG QUANTITY OF GROWTH Abundant Growth NR Bacterial sputum culture [id number] NR Complete blood count (CBC) with automated [...] - 04/05/16 04:08 Magnesium 2.2 mg/dL 1.8-2.4 Complete blood count (CBC) with automated white blood cell (WBC) differential - 07/23/16 19:40 Blood leukocytes automated count (number/volume) 10.1 10*3/ uL 4.3-11.0 Blood erythrocytes automated count (number/volume) 4.18 10*6 /uL 4.35-5.85 Venous blood hemoglobin measurement (mass/volume) 13.3 g/dL 11.5-16.0 Blood hematocrit (volume fraction) 39 % 35-52 Automated erythrocyte mean corpuscular volume 94 [foz_us] 80-99 Automated erythrocyte mean corpuscular hemoglobin (mass per erythrocyte) 32 pg 25-34 Automated erythrocyte mean corpuscular hemoglobin concentration measurement ( mass/volume) 34 g/dL 32-36 Automated erythrocyte distribution width ratio 12.3 % 10.0-14.5 Automated blood platelet count (count/volume) 336 10*3/uL 130-400 Automated blood platelet mean volume measurement 7.9 [foz_us ] 7.4-10.4 Automated blood neutrophils/100 leukocytes 74 % 42-75 Automated blood lymphocytes/100 leukocytes 19 % 12-44 Blood monocytes/100 leukocytes 7 % 0-12 Automated blood eosinophils/100 leukocytes 0 % 0-10 Automated blood basophils/100 leukocytes 0 % 0-10 Blood neutrophils automated count (number/volume) 7.5 10*3 1.8-7.8 Blood lymphocytes automated count (number/volume) 1.9 10*3 1.0-4.0 Blood monocytes automated count (number/volume) 0.7 10*3 0.0-1.0 Automated eosinophil count 0.0 10*3/uL 0.0-0.3 Automated blood basophil count (count/volume) 0.0 10*3/uL 0.0-0.1 Fibrin D-dimer FEU measurement in platelet poor plasma (mass/volume) - 19:40 Fibrin D-dimer FEU measurement in platelet poor plasma (mass/volume) 1.57 ug/mL 0.00-0.49 Comprehensive metabolic panel - 07/23/16 19:40 Serum or plasma sodium measurement (moles/volume) 135 mmol/ L 135-145 Serum or plasma potassium measurement (moles/volume) 3.5 mmol/L 3.6-5.0 Serum or plasma chloride measurement (moles/volume) 98 mmol/ L 98-107 Carbon dioxide 27 mmol/L 21-32 Serum or plasma anion gap determination (moles/volume) 10 mmol/L 5-14 Serum or plasma urea nitrogen measurement (mass/volume) 13 mg/dL 7-18 Serum or plasma creatinine measurement (mass/volume) 0.88 mg /dL 0.60-1.30 Serum or plasma urea nitrogen/creatinine mass ratio 15 NRG Serum or plasma creatinine measurement with calculation of estimated glomerular filtration rate > NRG Serum or plasma glucose measurement (mass/volume) 118 mg/dL 70-105 Serum or plasma calcium measurement (mass/volume) 9.5 mg/dL 8.5-10.1 Serum or plasma total bilirubin measurement (mass/volume) 0.3 mg/dL 0.1-1.0 Serum or plasma alkaline phosphatase measurement (enzymatic activity/volume) 44 U/L 40-136 Serum or plasma aspartate aminotransferase measurement (enzymatic activity/ volume) 18 U/L 5-34 Serum or plasma alanine aminotransferase measurement (enzymatic activity/volume ) 15 U/L 0-55 Serum or plasma protein measurement (mass/volume) 6.4 g/dL 6.4-8.2 Serum or plasma albumin measurement (mass/volume) 4.1 g/dL 3.2-4.5 Serum or plasma lithium measurement (moles/volume) - 07/23/16 19:40 BNP level 16.5 pg/mL <100.0 Arterial blood gas measurement - 07/23/16 19:50 Blood pCO2 32 mm[Hg] 35-45 Blood pO2 138 mm[Hg] 79-93 Arterial blood bicarbonate measurement (moles/volume) 26 mmol/L 23-27 Arterial blood base excess by calculation 3.3 mmol/L -2.5-2.5 Arterial blood oxygen saturation measurement 100 % 94-100 * Inhaled oxygen flow rate 5L NRG Arterial blood pH measurement with patient temperature correction 7.52 7.37-7.43 Arterial blood carbon dioxide, total measurement (moles/volume) 27.3 mmol/L 21.0-31.0 Body site R RAD NRG Assessment of wrist artery patency prior to arterial puncture YES-POS NRG Setting of ventilation mode NO NRG Measurement of body temperature 97.3 NRG Encounters ACCT No. Visit Date/Time Discharge Status Pt. Type Provider Facility Loc./Unit Complaint [id number] 07/23/2016 19:22:00 2016 22:25:00 DIS Outpatient EVERTON GORDON [facility] ER SOB [id number] 04/02/2016 15:29:00 2015 11:28:00 DIS Inpatient CECY CHANG MD [facility] ICU RESP FAILURE [id number] 07/22/2015 19:56:00 2015 15:35:00 DIS Inpatient DEANNA PHILLIPS DOI [facility] ICU COPD, VENT, HIGHER LEVEL OF CARE [id number] 08/27/2014 08:16:00 2014 23:59:59 CLS Outpatient KELY HARRIS DO [facility] RAD COPD DYSPNEA [id number] 08/04/2014 13:46:00 2014 23:59:59 CLS Outpatient KELY HARRIS DO [facility] RT COPD,DYSPNEA,TOBACCO USER [id number] 08/02/2014 11:46:00 2014 23:59:59 CLS Outpatient ANURADHA PARRA MD [facility] RAD STONE [id number] 05/28/2014 09:59:00 2014 23:59:59 CLS Outpatient KELY HARRIS DO [facility] RAD COPD [id number] 05/28/2016 12:41:00 ACT Outpatient KELY HARRIS DO [facility] RAD COPD,DYSPNEA [id number] 05/25/2016 13:39:00 ACT Outpatient KELY HARRIS DO [facility] RT COPD,DYSPNEA [id number] 05/18/2015 13:11:00 ACT Inpatient KELY HARRIS DO [facility] 4TH COPD EXACERBATION [id number] 05/27/2014 10:18:00 Document Registration [id number] 04/22/2014 18:09:00 ACT Inpatient RAYMUNDO CRAMER MD [facility] 4TH RESP DISTRESS; HEMOPTISIS [id number] 07/24/2012 07:22:00 Document Registration [id number] 07/23/2012 17:21:00 Document Registration [id number] 07/07/2010 07:06:00 Document Registration
== END 2016-07-23 22:25 | disposition home or self-care (01) ==
LOC: EDUNIT# 19:21 → ER 19:22
DX: J44.1 Chronic obstructive pulmonary disease with (acute) exacerbation (principal); I10 Essential (primary) hypertension; Z79.899 Other long term (current) drug therapy; Z87.891 Personal history of nicotine dependence
CPT/HCPCS: 36415; 71010; 71275; 80053; 82805; 83880; 85025; 85379; 94640; 96374

== ENCOUNTER → 2018-01-22 | Outpatient (CLI) | payer MEDICARE, MEDICAID ==
[~2018-01-22] MED LIST changes: +ALBU2.5V4 IH; +ALEN70TA47 PO; -AMLO5TAB2 PO; +AMLO5TAB7 PO; +BUDE10.2 IH; +HYDR-34 PO; -HYDR-3816 PO; -IPRA3AMP INH; +IPRA3AMP31 INH; +NEBU1KIT3 MC; +PRD20T PO; +RT-ALBUTEROL SULF 2.5 MG/3 ML PRE-MIX VIAL INH ONE; +TRAZ-190 PO; -TRAZ100T92 PO; +VITAMIN B12; +VITAMIN D3
== END ==
LOC: RT 15:52
PROVIDERS: ATTEND Nurse Practitioner Family
DX: J96.20 Acute and chronic respiratory failure, unspecified whether with hypoxia or hypercapnia (principal); J44.1 Chronic obstructive pulmonary disease with (acute) exacerbation; R06.00 Dyspnea, unspecified; J43.9 Emphysema, unspecified; R09.02 Hypoxemia; F17.201 Nicotine dependence, unspecified, in remission
CPT/HCPCS: 94060; 94726; 94729

== ENCOUNTER → 2018-03-07 | Outpatient (CLI) | payer MEDICAID, MEDICARE ==
[~2018-03-07] MED LIST changes: -RT-ALBUTEROL SULF 2.5 MG/3 ML PRE-MIX VIAL INH ONE
--- NOTE | 2018-03-07 15:52 | Diagnostic Imaging Report ---
CT CHEST SCREENING WO TECHNIQUE: Low-dose unenhanced CT of the chest was performed according to the screening protocol. Coronal MIP and sagittal MPR reformats are created. INDICATION: 57-year-old former smoker with 40-80 pack-year history of smoking. Quit smoking one year ago. COMPARISON: Low-dose screening CT chest from 05/28/2016. FINDINGS: Pulmonary findings: No endoluminal nodule within the trachea. Severe centrilobular emphysema is unchanged. No pulmonary mass or consolidation. Stable 6 mm linear nodule along the minor fissure which is benign in nature given long-term stability. Extrapulmonary findings: No pleural effusion. No axillary lymphadenopathy. No mediastinal, hilar, or juxtaphrenic lymphadenopathy. Stable borderline cardiomegaly. No pericardial effusion. Normal caliber thoracic aorta. No concerning focal osseous lesions. IMPRESSION: 1. No change in screening CT to indicate clinically active lung cancer. 2. Severe emphysema. LUNG-RADS CATEGORY: 1 - Negative MODIFIER: None. RECOMMENDATIONS: Continued annual screening with low-dose CT in 12 months. Dictated by: Dictated on workstation # [id number]
== END ==
LOC: RAD 14:31
PROVIDERS: ATTEND Nurse Practitioner Family
DX: Z12.2 Encounter for screening for malignant neoplasm of respiratory organs (principal); J43.9 Emphysema, unspecified; Z87.891 Personal history of nicotine dependence

== ENCOUNTER 2018-04-23 21:00 | Outpatient (CLI) | payer MEDICARE | END 2018-04-24 07:23 | disposition home or self-care (01) | LOC: SLEEP 21:00 | PROVIDERS: ATTEND Nurse Practitioner Family | DX: G47.33 Obstructive sleep apnea (adult) (pediatric) (principal); R09.02 Hypoxemia | CPT/HCPCS: 95810 ==

== ENCOUNTER 2018-09-07 12:00 | Inpatient (IN) | payer MEDICARE | END 2018-09-16 10:55 | disposition home health service (06) ==

== ENCOUNTER → 2019-05-15 | Outpatient (CLI) | payer MEDICARE ==
[~2019-05-15] MED LIST changes: +ALBU2.5V4 NEB; -ALEN70TA47 PO; +ALEN70TA5 PO; -AMLO5TAB7 PO; +AMLO5TAB9 PO; +CALC1TAB94 PO; -FLUO20CA25 PO; +FLUO20CA45 PO; +FURO20TA4 PO; +GUAI-367 PO; +HYDR-3816 PO; +HYDR-3820 PO; +LATA2.5D5 OU; +LEVO125T6 PO; +LIDO700A45 TP; +Lidocaine 4% Patch TOP; -MAGN400T6 PO; +MAGN400T8 PO; +MELA5CAP PO; +OXC5T PO; +OXYC-529 PO; +POLY17PO6 PO; +SENN-145 PO; +TRM50T PO
--- NOTE | 2019-05-15 12:17 | Diagnostic Imaging Report ---
EXAMINATION: CT low-dose lung cancer screening. INDICATION: 56-fiul-ltrd smoking history. TECHNIQUE: Routine images of the thorax were obtained using the CT low-dose lung cancer screening protocol. All CT scans use one or more of the following dose optimizing techniques: Automated exposure control, MA and/or KvP adjustment based on a patient size and exam type, or iterative reconstruction. FINDINGS: The previous CT low-dose lung cancer screening exam of 03/07/2018 failed to show any sign of a parenchymal lung mass that would indicate malignancy. On this exam, there is still no parenchymal abnormality that would indicate a neoplastic process. The small linear density involving the minor fissure seen previously is again evident and unchanged (image 151/262). The 7.4 mm nodule along the anterior aspect of the right middle lobe seen previously is also again evident and stable. The emphysematous changes involving both lungs seen previously are again noted. There is still no evidence for failure, pneumonia, or for a pleural effusion to indicate an acute abnormality. The heart size is at the upper limits of normal or slightly enlarged. The coronary artery calcifications seen previously are again evident and no different. The aorta is not abnormally dilated. There is no obvious mediastinal or hilar adenopathy. The thyroid gland is generally unremarkable. There is no breast mass identified. The sections through the upper abdomen fail to show any sign of an acute abnormality. The bone windows are unremarkable for a fracture or for a destructive lesion. IMPRESSION: 1. There is still no evidence for a parenchymal lung mass that would suggest malignancy. A follow-up low-dose lung cancer screening exam in one year would be recommended for continued evaluation. 2. There are emphysematous changes involving both lungs, but there is no sign of an acute cardiopulmonary abnormality. 3. There is borderline cardiomegaly and coronary artery disease. LUNG-RADS CATEGORY: 1. Dictated by: Dictated on workstation # [id number]
== END ==
LOC: RAD 10:13
PROVIDERS: ATTEND Nurse Practitioner Family
DX: Z12.2 Encounter for screening for malignant neoplasm of respiratory organs (principal); Z87.891 Personal history of nicotine dependence; J43.9 Emphysema, unspecified; I51.7 Cardiomegaly; I25.10 Atherosclerotic heart disease of native coronary artery without angina pectoris

== ENCOUNTER → 2019-09-08 | Outpatient (CLI) | payer MEDICARE ==
[~2019-09-08] MED LIST changes: +ACHYD1T PO; -FLUO20CA45 PO; +FLUO20CA46 PO; +HOLD METFORMIN - RECEIVED CONTRAST 20 ML VIAL IV SCH; -HYDR-3816 PO; -HYDR-3820 PO; +IOHEXOL 350 MG/ML 100 ML (OMNIPAQUE 350) VIAL IV ONE; -MONT10TA24 PO; +MONT10TA26 PO; +NS 100 ML (IVPB) BAG IV ONE; -OXYC-529 PO; +OXYC5TAB96 PO; -TRAZ-190 PO; +TRAZ-227 PO
[2019-09-08 12:30] LABS: CREATININE SERUM 1.15 MG/DL (0.60-1.30)
--- NOTE | 2019-09-08 14:25 | Diagnostic Imaging Report ---
CT CHEST WO TECHNIQUE: Multiple contiguous axial images were obtained through the chest without the use of intravenous contrast. All CT scans use one or more of the following dose optimizing techniques: automated exposure control, MA and/or KvP adjustment based on a patient size and exam type, or iterative reconstruction. INDICATION: Chest pain and shortness of air. COMPARISON: Low-dose CT chest from 05/15/2019. FINDINGS: Lungs and airway: No endoluminal nodule within the trachea. Severe centrilobular emphysema is again noted. No pulmonary mass or consolidation. No new pulmonary nodule. Stable flat 7 mm nodule along the right minor fissure which is benign in nature due to intrapulmonary lymph node. Pleura: No pleural effusion or pneumothorax. Heart and mediastinum: No supraclavicular or axillary lymphadenopathy. No mediastinal, hilar or juxtaphrenic lymphadenopathy. Calcified right hilar lymph node is due to old granulomatous infection. Normal caliber thoracic aorta. Heart is normal in size without pericardial effusion. Upper abdomen: Cholecystectomy. Left renal cyst requires no dedicated follow-up imaging and is stable since 2017. Musculoskeletal: No concerning focal osseous lesions. IMPRESSION: 1. No acute abnormality in the chest. 2. Severe emphysema. No features of clinically active lung cancer. Dictated by: Dictated on workstation # [id number]
--- NOTE | 2019-09-08 14:36 | Diagnostic Imaging Report ---
PROCEDURE: US Venous Lower Ext Dion. TECHNIQUE: Multiple real-time grayscale images were obtained over the lower extremities in various projections, bilaterally. Additional duplex Doppler and color Doppler images were also obtained. INDICATION: Dyspnea. There is no evidence of right or left lower extremity DVT. Both lower extremity deep venous systems demonstrate normal compressibility with normal response to augmentation and Valsalva. No fluid collection or mass is detected. IMPRESSION: No evidence of right or left lower extremity DVT. Dictated by: Dictated on workstation # [id number]
== END ==
LOC: RAD 11:30
PROVIDERS: ATTEND Nurse Practitioner Family
DX: J43.9 Emphysema, unspecified (principal); J96.20 Acute and chronic respiratory failure, unspecified whether with hypoxia or hypercapnia; F17.201 Nicotine dependence, unspecified, in remission
CPT/HCPCS: 36415; 71250; 82565; 84520; 93970

== ENCOUNTER → 2019-09-16 | Outpatient (CLI) | payer MEDICARE ==
[~2019-09-16] MED LIST changes: -HOLD METFORMIN - RECEIVED CONTRAST 20 ML VIAL IV SCH; -IOHEXOL 350 MG/ML 100 ML (OMNIPAQUE 350) VIAL IV ONE; -NS 100 ML (IVPB) BAG IV ONE; +RT-ALBUTEROL SULF 2.5 MG/3 ML PRE-MIX VIAL INH ONE; +RT-ALBUTEROL SULF 2.5 MG/3 ML PRE-MIX VIAL ONE
== END ==
LOC: RT 12:11
PROVIDERS: ATTEND Internal Medicine Critical Care Medicine
DX: J96.20 Acute and chronic respiratory failure, unspecified whether with hypoxia or hypercapnia (principal); J44.9 Chronic obstructive pulmonary disease, unspecified
CPT/HCPCS: 36600; 94060; 94726; 94729

== ENCOUNTER → 2019-10-16 | Outpatient (CLI) | payer MEDICARE ==
[~2019-10-16] MED LIST changes: -RT-ALBUTEROL SULF 2.5 MG/3 ML PRE-MIX VIAL INH ONE; -RT-ALBUTEROL SULF 2.5 MG/3 ML PRE-MIX VIAL ONE
[2019-10-16 09:51] LABS: ABG BASE EXCESS 2.7 MMOL/L (-2.5-2.5); ABG OXYGEN SATURATION 97 % (94-100); ABG PCO2 48 MMHG (35-45); ABG PH 7.37 (7.37-7.43); ABG PO2 97 MMHG (79-93); ABG TCO2 29.1 MMOL/L (21.0-31.0)
[2019-10-16 09:52] LABS: ALLENS TEST YES-POS; INSPIRED O2 3L; PATIENT TEMP 36.4; VENTILATOR NO
== END ==
LOC: RT 09:16
PROVIDERS: ATTEND Internal Medicine Critical Care Medicine
DX: J44.9 Chronic obstructive pulmonary disease, unspecified (principal); J96.20 Acute and chronic respiratory failure, unspecified whether with hypoxia or hypercapnia
CPT/HCPCS: 36600; 82805

== ENCOUNTER 2020-03-23 05:51 | Outpatient (RCR) | payer MEDICARE ==
[~2020-03-23] VITALS: Ht 165 cm; Wt 59.5 kg
[~2020-03-23 05:51] MED LIST changes: -CATHETER FLUSH 10 ML SYR IV PRN; -HOLD METFORMIN - RECEIVED CONTRAST 20 ML VIAL IV SCH; -IOHEXOL 350 MG/ML 100 ML (OMNIPAQUE 350) VIAL IV ONE; -NS 100 ML (IVPB) BAG IV ONE
== END 2020-03-23 10:10 | disposition home or self-care (01) ==
LOC: PREOP 05:51
PROVIDERS: ATTEND Specialist
DX: Z01.812 Encounter for preprocedural laboratory examination (principal); H25.9 Unspecified age-related cataract

== ENCOUNTER → 2020-03-23 | Outpatient (CLI) | payer MEDICARE ==
[~2020-03-23] MED LIST changes: -ALEN70TA5 PO; +ALEN70TA69 PO; +ALOE25CA2 PO; +AMLO-250 PO; +AMLO2.5T4 PO; -AMLO5TAB9 PO; +ASCO500C17 PO; +CALC-664 PO; -CALC1TAB94 PO; +CATHETER FLUSH 10 ML SYR IV PRN; +CHOL500050 PO; +HOLD METFORMIN - RECEIVED CONTRAST 20 ML VIAL IV SCH; +IOHEXOL 350 MG/ML 100 ML (OMNIPAQUE 350) VIAL IV ONE; +LATA7.5D OP; -MONT10TA26 PO; +MONT10TA97 PO; +NS 100 ML (IVPB) BAG IV ONE; -OXYC5TAB96 PO; -PANT40TA3 PO; +PANT40TA52 PO; +POTA10CA43 PO; +ZINC50TA51 PO
[2020-03-23 08:50] LABS: CREATININE SERUM 1.06 MG/DL (0.60-1.30)
--- NOTE | 2020-03-23 10:30 | Diagnostic Imaging Report ---
PROCEDURE: CT chest with contrast only. TECHNIQUE: Multiple contiguous axial images were obtained through the chest after administration of intravenous contrast. Auto Exposure Controls were utilized during the CT exam to meet ALARA standards for radiation dose reduction. INDICATION: Difficulty breathing. Short of air, chest discomfort. COMPARISON: Comparison is made with a prior study from 09/08/2019. FINDINGS: There is emphysema present with no mass or infiltrate seen. There is no interstitial lung disease present. There is no bronchiectasis or peribronchial thickening. There is no effusion or pneumothorax. There is no mediastinal mass or adenopathy. There is no acute bony abnormality. IMPRESSION: Severe emphysema. No acute abnormality is seen with no significant change from 09/08/2019. Dictated by: Dictated on workstation # [id number]
== END ==
LOC: RAD 10:15
PROVIDERS: ATTEND Nurse Practitioner Family
DX: J43.9 Emphysema, unspecified (principal); R91.8 Other nonspecific abnormal finding of lung field
CPT/HCPCS: 71260; 82565; 84520; U0002; 36415; 87635

== ENCOUNTER → 2020-03-25 | Day surgery (SDC) | payer MEDICARE ==
[~2020-03-25] VITALS: Ht 165 cm; Wt 54.5 kg
[~2020-03-25] MED LIST changes: +LIDOCAINE PF 1% 2 ML VIAL IR PRN; +MIDAZOLAM 2 MG/2 ML (VERSED) VIAL ONE; +MOXIFLOXACIN OPHTH SOLN 5 MG/ML 0.3 ML SYRINGE OP ONE; +POVIDONE (BETADINE) OPHTH SOLN 5% 30 ML OP ONE; +TIMOLOL MALEATE 0.5% 5 ML (TIMOPTIC) BTL OU PRN; +acetaZOLAMIDE ER 500 MG CAP (DIAMOX SEQUELS) PO ONE
[2020-03-25] MEDS: TETRACAINE 0.5% OPHTH SOLN 4 ML BTL (SINGLE DOSE ONLY) OU PRN ×4 (09:55→10:15)
[2020-03-25 09:59] VITALS: BP 134/80
[2020-03-25] MEDS: TROPICAMIDE 1% OPH SOLN (MYDRIACYL) 15 ML BTL OP SCH ×3 (10:03→10:15)
[2020-03-25] MEDS: PHENYLEPHRINE 10% OPHTH (NEO-SYN) 5 ML BTL OU SCH ×3 (10:03→10:15)
--- NOTE | 2020-03-25 10:36 | Ophthalmologist Pre-Op Note ---
Pre-Operative Progress Note H&P Reviewed The H&P was reviewed, patient examined and no changes noted. Date H&P Reviewed: Mar 25, 2020 Time H&P Reviewed: 10:36 Pre-Op Dx Cataract, Left Eye SAE UGALDE MD Mar 25, 2020 10:36
--- NOTE | 2020-03-25 10:58 | Ophthalmology Operative Report ---
Cataract removal/placement IOL PREOPERATIVE DIAGNOSIS: Cataract Left Eye POSTOPERATIVE DIAGNOSIS: Cataract Left Eye PROCEDURE: Cataract removal and placement of posterior chamber implant, left eye SURGEON: Ammon Ugalde ANESTHESIA: Topical with sedation COMPLICATIONS: None ESTIMATED BLOOD LOSS: Minimal DESCRIPTION OF PROCEDURE: After proper informed consent was obtained, the patient, a 59 female, was taken to the Operating Room and the left eye was anesthetized with tetracaine. The left eye was then prepped and draped in the usual manner. A wire lid speculum was placed. A paracentesis was made at the left hand position. Preservative free lidocaine was injected into the anterior chamber followed by viscoelastic. A clear corneal incision was made in the temporal position. A capsulorrhexis was preformed and the central nuclear and cortical material were removed. The posterior capsule was polished and an Roland 22.5 AU00T0 was placed into the capsular bag. The residual viscoelastic was aspirated and balanced saline solution was injected into the anterior chamber. Moxifloxacin was injected into the anterior chamber. The wound was checked and found to be water tight. The patient tolerated the procedure well without complications. AMMON UGALDE MD Mar 25, 2020 10:58
[2020-03-25 11:01] VITALS: BP 128/72
--- NOTE | 2020-03-25 11:10 | Anesthesia-General Post-Op ---
MAC Patient Condition Mental Status/LOC: Same as Preop Cardiovascular: Satisfactory Nausea/Vomiting: Absent Respiratory: Satisfactory Pain: Controlled Complications: Absent Post Op Complications Complications None Follow Up Care/Instructions Patient Instructions None needed. Anesthesiology Discharge Order Discharge Order Patient is doing well, no complaints, stable vital signs, no apparent adverse anesthesia problems. No complications reported per nursing. ERICA SANTOS CRNA Mar 25, 2020 11:10
== END ==
LOC: SDC 09:10
PROVIDERS: ATTEND Specialist
DX: H25.12 Age-related nuclear cataract, left eye (principal); I10 Essential (primary) hypertension; F32.9 Major depressive disorder, single episode, unspecified; J44.9 Chronic obstructive pulmonary disease, unspecified; F41.9 Anxiety disorder, unspecified; G47.00 Insomnia, unspecified; Z79.51 Long term (current) use of inhaled steroids; Z79.899 Other long term (current) drug therapy; Z88.1 Allergy status to other antibiotic agents; Z80.9 Family history of malignant neoplasm, unspecified
CPT/HCPCS: 66984; V2632

== ENCOUNTER 2020-03-30 05:35 | Outpatient (RCR) | payer MEDICARE ==
[~2020-03-30] VITALS: Ht 160 cm; Wt 59.5 kg
[~2020-03-30 05:35] MED LIST changes: -LIDOCAINE PF 1% 2 ML VIAL IR PRN; -MIDAZOLAM 2 MG/2 ML (VERSED) VIAL ONE; -MOXIFLOXACIN OPHTH SOLN 5 MG/ML 0.3 ML SYRINGE OP ONE; -POVIDONE (BETADINE) OPHTH SOLN 5% 30 ML OP ONE; -TIMOLOL MALEATE 0.5% 5 ML (TIMOPTIC) BTL OU PRN; -acetaZOLAMIDE ER 500 MG CAP (DIAMOX SEQUELS) PO ONE
== END 2020-03-30 11:36 | disposition home or self-care (01) ==
LOC: PREOP 05:35
PROVIDERS: ATTEND Specialist
DX: Z01.818 Encounter for other preprocedural examination (principal); H25.11 Age-related nuclear cataract, right eye

== ENCOUNTER → 2020-03-31 | Outpatient (CLI) | payer MEDICARE | LOC: LABNPT 05:02 | PROVIDERS: ATTEND Specialist | DX: H25.9 Unspecified age-related cataract (principal) | CPT/HCPCS: 87635 ==

== ENCOUNTER 2020-04-01 09:13 | Day surgery (SDC) | payer MEDICARE ==
[~2020-04-01] VITALS: Ht 160 cm; Wt 59.5 kg
[2020-04-01 09:10] VITALS: BP 101/66
[2020-04-01] MEDS ORDERED: LIDOCAINE PF 1% 2 ML VIAL IR PRN (09:15)
[2020-04-01] MEDS ORDERED: TIMOLOL MALEATE 0.5% 5 ML (TIMOPTIC) BTL OU PRN (09:15)
[2020-04-01] MEDS ORDERED: MOXIFLOXACIN OPHTH SOLN 5 MG/ML 0.3 ML SYRINGE OP ONE (09:15)
[2020-04-01] MEDS ORDERED: POVIDONE (BETADINE) OPHTH SOLN 5% 30 ML OP ONE (09:15)
[2020-04-01] MEDS: TETRACAINE 0.5% OPHTH SOLN 4 ML BTL (SINGLE DOSE ONLY) OU PRN ×4 (09:21→09:49)
[2020-04-01] MEDS: PHENYLEPHRINE 10% OPHTH (NEO-SYN) 5 ML BTL OU SCH ×3 (09:37→09:49)
[2020-04-01] MEDS: TROPICAMIDE 1% OPH SOLN (MYDRIACYL) 15 ML BTL OP SCH ×3 (09:37→09:49)
--- NOTE | 2020-04-01 09:53 | Ophthalmologist Pre-Op Note ---
Pre-Operative Progress Note H&P Reviewed The H&P was reviewed, patient examined and no changes noted. Date H&P Reviewed: Apr 01, 2020 Time H&P Reviewed: 09:53 Pre-Op Dx Cataract, Right Eye SAE UGALDE MD Apr 01, 2020 09:53
[2020-04-01] MEDS ORDERED: MIDAZOLAM 2 MG/2 ML (VERSED) VIAL ONE (09:57)
--- NOTE | 2020-04-01 10:15 | Ophthalmology Operative Report ---
Cataract removal/placement IOL PREOPERATIVE DIAGNOSIS: Cataract Right Eye POSTOPERATIVE DIAGNOSIS: Cataract Right Eye PROCEDURE: Cataract removal and placement of posterior chamber implant, right eye SURGEON: Ammon Ugalde ANESTHESIA: Topical with sedation COMPLICATIONS: None ESTIMATED BLOOD LOSS: Minimal DESCRIPTION OF PROCEDURE: After proper informed consent was obtained, the patient, a 59 female, was taken to the Operating Room and the right eye was anesthetized with tetracaine. The right eye was then prepped and draped in the usual manner. A wire lid speculum was placed. A paracentesis was made at the left hand position. Preservative free lidocaine was injected into the anterior chamber followed by viscoelastic. A clear corneal incision was made in the temporal position. A capsulorrhexis was preformed and the central nuclear and cortical material were removed. The posterior capsule was polished and Roland 22.5 AU00T0 IOL was placed into the capsular bag. The residual viscoelastic was aspirated and balanced saline solution was injected into the anterior chamber. Moxifloxacin was injected into the anterior chamber. The wound was checked and found to be water tight. The patient tolerated the procedure well without complications. AMMON UGALDE MD Apr 01, 2020 10:15
[2020-04-01 10:20] VITALS: BP 115/71
[2020-04-01] MEDS ORDERED: acetaZOLAMIDE ER 500 MG CAP (DIAMOX SEQUELS) PO ONE (10:30)
--- NOTE | 2020-04-01 11:36 | Anesthesia-General Post-Op ---
MAC Patient Condition Mental Status/LOC: Same as Preop Cardiovascular: Satisfactory Nausea/Vomiting: Absent Respiratory: Satisfactory Pain: Controlled Complications: Absent Post Op Complications Complications None Follow Up Care/Instructions Patient Instructions None needed. Anesthesiology Discharge Order Discharge Order Patient is doing well, no complaints, stable vital signs, no apparent adverse anesthesia problems. No complications reported per nursing. FELIX BEACH CRNA Apr 01, 2020 11:36
== END 2020-04-01 10:20 | disposition home or self-care (01) ==
LOC: SDC 09:13
PROVIDERS: ATTEND Specialist
DX: H25.11 Age-related nuclear cataract, right eye (principal); I10 Essential (primary) hypertension; J44.9 Chronic obstructive pulmonary disease, unspecified; F32.9 Major depressive disorder, single episode, unspecified; G47.00 Insomnia, unspecified; E05.00 Thyrotoxicosis with diffuse goiter without thyrotoxic crisis or storm; Z79.899 Other long term (current) drug therapy; Z88.8 Allergy status to other drugs, medicaments and biological substances; Z90.711 Acquired absence of uterus with remaining cervical stump; Z80.9 Family history of malignant neoplasm, unspecified
CPT/HCPCS: 66984; V2632

== ENCOUNTER → 2020-08-31 | Outpatient (CLI) | payer MEDICARE ==
[~2020-08-31] MED LIST changes: -ALEN70TA69 PO; +ALEN70TA80 PO; +CALC-1026 PO; -CALC-664 PO; +MONT10TA32 PO; -MONT10TA97 PO
--- NOTE | 2020-08-31 15:01 | Diagnostic Imaging Report ---
PROCEDURE: CT chest without contrast. TECHNIQUE: Multiple contiguous axial images were obtained through the chest without the use of intravenous contrast. Auto Exposure Controls were utilized during the CT exam to meet ALARA standards for radiation dose reduction. INDICATION: Right chest pain. COMPARISON: 03/23/2020. FINDINGS: The marked centrilobular emphysema with an upper lobe predominance has shown no significant change. Biapical pleural thickening is also stable. There is no evidence of new pulmonary mass or infiltrate. No significant pleural or pericardial fluid is identified. Dense granulomatous calcifications are seen within the right hilum. There is no significant pleural or pericardial fluid. The gallbladder is absent and a dominant cyst is again noted in the upper pole of the left kidney. There is no evidence of pathologically enlarged adenopathy. IMPRESSION: Stable emphysema and granulomatous residua without acute abnormality or adverse change identified. Dictated by: Dictated on workstation # [id number]
== END ==
LOC: RAD 13:58
PROVIDERS: ATTEND Nurse Practitioner Family
DX: J43.2 Centrilobular emphysema (principal)
CPT/HCPCS: 71250

== ENCOUNTER → 2020-12-02 | Outpatient (CLI) | payer MEDICARE ==
--- NOTE | 2020-12-02 17:01 | Diagnostic Imaging Report ---
Indication: COPD. TIME OF EXAM: 12:20 PM Correlation is made with prior chest from 08/27/2014. The heart size normal. Lungs are hyperinflated consistent with COPD. No infiltrates are identified. As no effusion or pneumothorax. There are postoperative changes of lower cervical ACDF. IMPRESSION: COPD. No acute features detected. Report faxed at 2:25 PM 12/02/2020/cb Dictated by: Dictated on workstation # [id number]
== END ==
LOC: RAD 11:39
PROVIDERS: ATTEND Nurse Practitioner Family
DX: J44.9 Chronic obstructive pulmonary disease, unspecified (principal)
CPT/HCPCS: 71046

== ENCOUNTER → 2020-12-28 | Outpatient (CLI) | payer MEDICARE ==
[~2020-12-28] MED LIST changes: +RT-ALBUTEROL SULF 2.5 MG/3 ML PRE-MIX VIAL INH ONE
== END ==
LOC: RT 14:30
PROVIDERS: ATTEND Nurse Practitioner Family
DX: J44.9 Chronic obstructive pulmonary disease, unspecified (principal)
CPT/HCPCS: 94060; 94726; 94729